=== PATIENT | female | born 1935 | race Caucasian/White ===

== ENCOUNTER 2020-06-01 12:25 | Outpatient (REF) | payer MEDICARE, SELFPAY ==
[2020-06-01 13:56] LABS: MANUAL DIFF FLAG NO
[2020-06-01 14:10] LABS: Basophils Absolute Auto 0.1 X10*3/uL (0.0-0.2); Eosinophils Absolute Auto 0.3 X10*3/uL (0.0-0.4); Eosinophils Percent Auto 4.8 % (0-4); Hematocrit 37.2 % (37-47); Hemoglobin 12.1 g/dl (12.0-16.0); Imm Gran Abs Auto 0.02 X10*3/uL (0.00-0.03); Imm Gran Pct Auto 0.3 % (0.0-0.4); Lymphocytes Absolute Auto 1.5 X10*3/uL (1.2-4.9); Lymphocytes Percent Auto 24.1 % (20-40); Mean Corpuscular HGB Conc 32.5 g/dl (31.0-35.0); Mean Corpuscular Hemoglobin 32.1 pg (27.0-33.0); Mean Corpuscular Volume 98.7 fL (80-98); Mean Platelet Volume 10.1 fL (9.4-12.3); Monocytes Absolute Auto 0.6 X10*3/uL (0.1-1.2); Monocytes Percent Auto 9.1 % (2-11); Neutrophils Absolute Auto 3.8 X10*3/uL (2.0-8.3); Neutrophils Percent Auto 60.7 % (45-73); Platelet Count 327 X10*3/uL (160-400); Red Blood Count 3.77 X10*6/uL (4.20-5.50); Red Cell Distribution Width 13.8 % (11.0-16.0); White Blood Count 6.3 X10*3/uL (4.8-10.8)
[2020-06-01 14:36] LABS: Alanine Aminotransferase 15 U/L (0-31); Alkaline Phosphatase 63 U/L (39-117); Anion Gap 14 (12-20); Aspartate Amino Transferase 21 U/L (5-31); Bilirubin Total 0.3 mg/dL (0.0-1.0); Blood Urea Nitrogen 21 mg/dL (9-16); Calcium 9.4 mg/dL (8.4-10.2); Carbon Dioxide 30 mmol/L (22-29); Chloride 103 mmol/L (96-108); Estimated Glomerular Filt Rate 48; Glucose Random 86 mg/dL (60-115); Sodium 142 mmol/L (135-145); Total Protein 6.4 g/dL (6.5-8.0)
[2020-06-01 14:46] LABS: Free T4 (Free Thyroxine) 1.14 ng/dL (0.71-1.85); Thyroid Stimulating Hormone 1.46 mIU/mL (0.32-4.0)
== END 2020-06-01 12:26 | disposition home or self-care (01) ==
LOC: HO.10HDL 12:25
PROVIDERS: Visit Provider Internal Medicine
DX: I12.9 Hypertensive chronic kidney disease with stage 1 through stage 4 chronic kidney disease, or unspecified chronic kidney disease (principal); E03.9 Hypothyroidism, unspecified
CPT/HCPCS: 36415; 80053; 84439; 84443; 85025

== ENCOUNTER 2020-12-22 14:26 | Outpatient (REF) | payer MEDICARE, SELFPAY ==
[2020-12-22 15:01] LABS: MANUAL DIFF FLAG NO
[2020-12-22 15:06] LABS: Basophils Absolute Auto 0.1 X10*3/uL (0.0-0.2); Basophils Percent Auto 0.8 % (0-2); Eosinophils Absolute Auto 0.2 X10*3/uL (0.0-0.4); Eosinophils Percent Auto 2.7 % (0-4); Hemoglobin 12.1 g/dl (12.0-16.0); Imm Gran Abs Auto 0.03 X10*3/uL (0.00-0.03); Imm Gran Pct Auto 0.5 % (0.0-0.4); Lymphocytes Absolute Auto 1.7 X10*3/uL (1.2-4.9); Lymphocytes Percent Auto 26.4 % (20-40); Mean Corpuscular HGB Conc 32.7 g/dl (31.0-35.0); Mean Corpuscular Volume 97.9 fL (80-98); Mean Platelet Volume 9.9 fL (9.4-12.3); Monocytes Absolute Auto 0.7 X10*3/uL (0.1-1.2); Monocytes Percent Auto 10.4 % (2-11); Neutrophils Absolute Auto 3.7 X10*3/uL (2.0-8.3); Neutrophils Percent Auto 59.2 % (45-73); Platelet Count 293 X10*3/uL (160-400); Red Blood Count 3.78 X10*6/uL (4.20-5.50); Red Cell Distribution Width 13.6 % (11.0-16.0); White Blood Count 6.3 X10*3/uL (4.8-10.8)
[2020-12-22 15:30] LABS: Alanine Aminotransferase 17 U/L (0-31); Alkaline Phosphatase 66 U/L (39-117); Anion Gap 10 (12-20); Aspartate Amino Transferase 20 U/L (5-31); Bilirubin Total 0.4 mg/dL (0.0-1.0); Blood Urea Nitrogen 16 mg/dL (9-16); Calcium 9.6 mg/dL (8.4-10.2); Carbon Dioxide 32 mmol/L (22-29); Chloride 100 mmol/L (96-108); Estimated Glomerular Filt Rate 60; Glucose Random 94 mg/dL (60-115); Potassium 4.2 mmol/L (3.3-5.1); Sodium 138 mmol/L (135-145); Total Protein 6.4 g/dL (6.5-8.0)
[2020-12-22 15:54] LABS: Free T4 (Free Thyroxine) 1.19 ng/dL (0.71-1.85); Thyroid Stimulating Hormone 0.65 uIU/mL (0.32-4.0)
== END 2020-12-22 14:27 | disposition home or self-care (01) ==
LOC: HO.LAB 14:26
PROVIDERS: PCP Internal Medicine; Visit Provider Internal Medicine
DX: I12.9 Hypertensive chronic kidney disease with stage 1 through stage 4 chronic kidney disease, or unspecified chronic kidney disease (principal); N18.9 Chronic kidney disease, unspecified; I48.0 Paroxysmal atrial fibrillation; E03.9 Hypothyroidism, unspecified
CPT/HCPCS: 36415; 80053; 84439; 84443; 85025

== ENCOUNTER 2021-03-09 10:44 | Outpatient (REF) | payer MEDICARE, SELFPAY ==
--- NOTE | ~2021-03-09 | MM_ITS ---
EXAMINATION: MM SCREENING DIGITAL BREAST TOMOSYNTHESIS, BILATERAL CLINICAL INFORMATION: Right breast cancer status post lumpectomy 2014. Left breast cancer status post lumpectomy 1995. Due for yearly. COMPARISON: Mammography: 03/03/2020, outside mammography 01/06/2019, 05/09/2018, 01/24/2016 ([place], [place]). TECHNIQUE: Digital breast tomosynthesis is performed in both the craniocaudal and mediolateral oblique views along with computer-aided detection (CAD). Synthesized 2D images are generated from the tomosynthesis. FINDINGS: There are scattered areas of fibroglandular density (ACR BI-RADS breast composition Category b). Parenchymal pattern is similar to prior studies. There are old post therapy changes with minor bilateral scarring. There is no developing density or interval mass or architectural abnormality. Scattered bilateral vascular and round calcifications are again seen. No significant changes. MM/MM tomosynthesis screening BI IMPRESSION: No mammographic evidence of malignancy. ASSESSMENT: BI-RADS 2: Benign RECOMMENDATION: Routine annual mammography screening. This patient's information was entered into a reminder system with a target due date for their next mammogram.
== END 2021-03-09 10:45 | disposition home or self-care (01) ==
LOC: HO.MAMMO 10:44
PROVIDERS: Visit Provider Internal Medicine
DX: Z12.31 Encounter for screening mammogram for malignant neoplasm of breast (principal)
CPT/HCPCS: 77063; 77067

== ENCOUNTER 2021-04-06 02:22 | Emergency (ER) | payer MEDICARE, SELFPAY ==
--- NOTE | ~2021-04-06 | XR_ITS ---
EXAMINATION: XR HIP, LEFT CLINICAL INFORMATION: Fall. Pain. COMPARISON: None TECHNIQUE: AP views of the pelvis as well as AP and cross-table lateral views of the left hip. FINDINGS: Total left hip arthroplasty. The arthroplasty components demonstrate normal anatomic alignment. No acute hardware or osseous fracture. No perihardware lucency to suggest loosening or infection. Severe right hip joint space narrowing with bony remodeling, subchondral sclerosis, and marginal osteophytes. Overlying surgical clips. XR/XR hip LT w PEL1V IMPRESSION: Total left hip arthroplasty with normal alignment. No acute osseous or hardware fracture. Severe right hip osteoarthritis.
--- NOTE | ~2021-04-06 | XR_ITS ---
EXAMINATION: XR KNEE, LEFT CLINICAL INFORMATION: Fall, pain COMPARISON: None TECHNIQUE: Four views of the left knee. FINDINGS: Status post left total knee arthroplasty. There is a displaced and mildly comminuted oblique fracture of the mid to distal femoral diaphysis. The major distal fragment is displaced medially by nearly one shaft width, and there is anterior angulation of the distal fragment. No definite fracture line extension to the distal femoral prosthesis. Proximal femoral hardware is partially visualized. XR/XR knee LT 2V IMPRESSION: Displaced fracture of the mid to distal femoral diaphysis. No definite fracture line extension to the distal femoral prosthesis.
--- NOTE | ~2021-04-06 | XR_ITS ---
EXAMINATION: XR CHEST CLINICAL INFORMATION: Preoperative evaluation. COMPARISON: None TECHNIQUE: Frontal view of the chest was obtained. FINDINGS: Rightward shift of the mediastinum with right lung volume loss. No airspace consolidation. No pleural effusion or pneumothorax. No acute osseous abnormality. XR/XR chest 1V IMPRESSION: Right lung volume loss with rightward shift the mediastinum. No airspace consolidation, pleural effusion, or pneumothorax.
--- NOTE | ~2021-04-06 | CT_ITS ---
EXAMINATION: CT ABDOMEN AND PELVIS WITHOUT CONTRAST CLINICAL INFORMATION: Fall, pain COMPARISON: None TECHNIQUE: Multidetector volumetric imaging was performed from the superior aspect of the liver through the pubic symphysis. Sagittal and coronal reformatted images were obtained on the technologist's workstation. This CT examination was performed using dose optimization techniques as appropriate, variously including the following: *Automated exposure control *Adjustment of mA and/or kV according to patient size (this includes techniques or standardized protocols for targeted exams where dose is matched to indication/reason for exam; i.e. extremities or head) *Use of iterative reconstruction technique DLP: 802 mGy-cm FINDINGS: LUNG BASES: The visualized lung bases are unremarkable. Elevated left hemidiaphragm. Coronary artery calcifications are present. LIVER, GALLBLADDER, AND BILIARY TREE: The liver is normal in size, shape, and attenuation. No biliary ductal dilatation is present. The gallbladder is unremarkable with no evidence of radiopaque gallstones, gallbladder wall thickening, or obvious pericholecystic inflammatory changes. PANCREAS: Unremarkable. SPLEEN: Unremarkable. ADRENAL GLANDS: Unremarkable. KIDNEYS AND URETERS: The kidneys are normal in size, shape, and attenuation. No hydronephrosis, hydroureter, or calculi seen. BLADDER: Unremarkable. GASTROINTESTINAL TRACT: Colonic diverticulosis is noted. The small and large bowel are otherwise unremarkable without evidence of obstruction or pericolonic inflammatory change. No free fluid or free air is seen. ABDOMINAL WALL: No significant hernia is appreciated. LYMPH NODES: Normal. VASCULAR: There is atherosclerotic calcification along the aorta. PELVIC VISCERA: Unremarkable. OSSEOUS STRUCTURES: No acute fracture is seen. Status post left total hip arthroplasty. Severe degenerative change of the right hip. Degenerative changes are noted in the spine. Grade 2 anterolisthesis of L4 and L5 is favored to be chronic in the setting of facet arthropathy. CT/CT abdomen pelvis wo con IMPRESSION: No acute findings identified in the abdomen/pelvis. Chronic appearing/degenerative changes as noted above.
--- NOTE | ~2021-04-06 | CT_ITS ---
EXAMINATION: NONCONTRAST HEAD CT NONCONTRAST CERVICAL SPINE CT INDICATION INFORMATION: Fall COMPARISON: None TECHNIQUE: Separate noncontrast CT examinations of the head and cervical spine were performed. Coronal head CT images and coronal and sagittal cervical spine images were created at the technologist workstation. DLP: -7 mGy-cm DOSE LOWERING TECHNIQUES: This CT examination was performed using dose optimization techniques as appropriate, variously including the following: - Automated exposure control - Adjustment of mA and/or kV according to patient size (this includes techniques or standardized protocols for targeted exams were dose is matched to indication/reason for exam; i.e. extremities or head) - Use of iterative reconstruction technique FINDINGS: Head: There is no evidence of acute intracranial hemorrhage or territorial infarction. No abnormal mass-effect or midline shift is seen. Ramirez to white matter differentiation is well preserved. No extra-axial fluid collections are identified. The ventricles are normal in size. There is moderate periventricular white matter hypoattenuation consistent with chronic small vessel ischemic disease. Mild volume loss is noted. The osseous structures and soft tissues are normal. There is mucosal thickening of the left maxillary sinus inferiorly. The mastoid air cells are well-aerated. Cervical spine: There is degenerative change at the atlantodens articulation. There are grade 1 anterolistheses of C3 on C4 and C4 on C5 favored to be chronic/degenerative in nature in the setting of severe facet arthropathy. Vertebral body heights are maintained. There is disc space narrowing of the lower cervical spine with associated endplate osteophytes. No evidence of acute fracture. No prevertebral soft tissue swelling. Visualized portions of the lung apices are unremarkable. The thyroid gland is contains numerous calcifications, and the right lobe is enlarged. CT/CT cervical spine wo con IMPRESSION: 1. No acute intracranial findings. 2. No acute findings identified in the cervical spine. Moderate to severe degenerative changes. 3. Enlarged right thyroid lobe with numerous bilateral thyroid calcifications. This may be better assessed with ultrasound.
[2021-04-06 02:39] VITALS: BP 142/72; BP 143/69; PULSE 69; PULSE 70; RESP 16; TEMP 36.6; O2SAT 97; O2SAT 99; BMI 26.5
--- NOTE | 2021-04-06 02:50 | ECG_ITS ---
Test Reason : FALL Blood Pressure : / mmHG Vent. Rate : 073 BPM Atrial Rate : 073 BPM P-R Int : 216 ms QRS Dur : 088 ms QT Int : 426 ms P-R-T Axes : 050 035 044 degrees QTc Int : 469 ms Sinus rhythm with 1st degree A-V block with occasional Premature ventricular complexes Otherwise normal ECG No previous ECGs available Referred By: Betsey Blum Electronically Signed By:ALFREDO WOLF
[2021-04-06 03:44] LABS: Basophils Absolute Auto 0.1 X10*3/uL (0.0-0.2); Basophils Percent Auto 0.8 % (0-2); Eosinophils Absolute Auto 0.4 X10*3/uL (0.0-0.4); Eosinophils Percent Auto 4.6 % (0-4); Hematocrit 34.3 % (37-47); Hemoglobin 11.3 g/dl (12.0-16.0); Imm Gran Abs Auto 0.03 X10*3/uL (0.00-0.03); Imm Gran Pct Auto 0.4 % (0.0-0.4); Lymphocytes Absolute Auto 2.3 X10*3/uL (1.2-4.9); Lymphocytes Percent Auto 28.9 % (20-40); MANUAL DIFF FLAG NO; Mean Corpuscular HGB Conc 32.9 g/dl (31.0-35.0); Mean Corpuscular Hemoglobin 31.7 pg (27.0-33.0); Mean Corpuscular Volume 96.3 fL (80-98); Mean Platelet Volume 9.6 fL (9.4-12.3); Monocytes Absolute Auto 0.8 X10*3/uL (0.1-1.2); Monocytes Percent Auto 9.8 % (2-11); Neutrophils Absolute Auto 4.4 X10*3/uL (2.0-8.3); Neutrophils Percent Auto 55.5 % (45-73); Platelet Count 294 X10*3/uL (160-400); Red Blood Count 3.56 X10*6/uL (4.20-5.50); Red Cell Distribution Width 13.8 % (11.0-16.0); White Blood Count 7.8 X10*3/uL (4.8-10.8)
--- NOTE | 2021-04-06 03:48 | ED.FALL ---
HPI - Fall General Chief Complaint: Fall Stated Complaint: fall Time Seen by Provider: 04/06/21 02:50 Source: patient and family (Daughter) Mode of arrival: ambulatory History of Present Illness HPI Narrative: 85-year-old female who presents via EMS after sustaining a mechanical fall when she got up in the middle the night to get a glass of water. Patient denies any associated prodrome of shortness of breath, palpitations, dizziness prior to the fall. She denies any head strike or loss of consciousness but does have a history of blood thinners and has complaints of left lower extremity/hip pain. Related Data Allergies Allergy/AdvReac Type Severity Reaction Status Date / Time No Known Allergies Allergy Unverified 04/06/21 02:50 Review of Systems Review of Systems: Pertinent positives and negatives as stated in HPI 10 point review of systems is otherwise negative. [facility] Past Medical History Source: nursing notes reviewed Social History Social History Advance Directives: No Advance Directives Information Provided: No Physical Exam Vital Signs: Vital Signs: Last Vital Signs Temp 98 F 04/06/21 02:39 Pulse 69 04/06/21 02:39 Resp 16 04/06/21 02:39 BP 142/72 H 04/06/21 02:39 Pulse Ox 97 04/06/21 02:39 Body Mass Index 26.5 VITAL SIGNS: Reviewed. GENERAL: Well developed, well nourished, in no acute distress. HEAD: Normocephalic/atraumatic, EYES: PERRLA, EOMI EARS: Ext canals without abnormality, TMs non-bulging and non-erythematous NOSE: Nares patent bilateral OROPHARYNX: no oral lesions noted, posterior pharynx clear LUNGS: Normal breath sounds. No adventitious sounds or accessory muscle use. SpO2<97> CARDIOVASCULAR: Regular rate and rhythm without noted murmurs, no JVD or lower extremity edema. ABDOMEN: Soft, non-tender, non-distended with bowel sounds. MUSCULOSKELETAL: No tenderness, deformities, or effusions noted on gross inspection. EXTREMITIES: No cyanosis, clubbing left lower extremity with internal rotation and pain on gentle movement, palpable DP/PT with sensation intact and good capillary refill with warm foot. Left hand: Skin tear, clean, hemostatic SKIN: Inspection of the skin reveals no rashes NEUROLOGIC: Alert and oriented x 4. Strength and sensation to light touch were grossly intact x 4. Course Course Course Narrative: 85-year-old female with history and clinical presentation consistent with mechanical fall and on review of all investigations has left femoral fracture and was provided with fentanyl for pain control with good resolution of pain. Otherwise, skin tear to dorsum of left hand was approximated with Steri-Strips and case was discussed with both Orthopedic Service as well as inpatient hospitalist, the latter of which is accepting admission. Procedures Laceration Laceration 1: Site: hand (Skin tear) Side (If applicable): left Size (cm): 2 Description: irregular Depth: simple, single layer Pre-repair: wound explored and irrigated extensively Skin layer closed with: other (Steri-Strips) MDM - Fall Lab Data Result diagrams: 04/06/21 03:38 04/06/21 03:38 Labs: Lab Results 04/06/21 04/06/21 04/06/21 Range/Units 03:38 03:38 04:05 WBC 7.8 (4.8-10.8) X10*3/uL RBC 3.56 L (4.20-5.50) X10*6/uL Hgb 11.3 L (12.0-16.0) g/dl Hct 34.3 L (37-47) % MCV 96.3 (80-98) fL MCH 31.7 (27.0-33.0) pg MCHC 32.9 (31.0-35.0) g/dl RDW 13.8 (11.0-16.0) % Plt Count 294 (160-400) X10*3/uL MPV 9.6 (9.4-12.3) fL Immature Gran % (Auto) 0.4 (0.0-0.4) % Neut % (Auto) 55.5 (45-73) % Lymph % (Auto) 28.9 (20-40) % Stark % (Auto) 9.8 (2-11) % Eos % (Auto) 4.6 H (0-4) % Baso % (Auto) 0.8 (0-2) % Lymph # (Auto) 2.3 (1.2-4.9) X10*3/uL Stark # (Auto) 0.8 (0.1-1.2) X10*3/uL Eos # (Auto) 0.4 (0.0-0.4) X10*3/uL Baso # (Auto) 0.1 (0.0-0.2) X10*3/uL Abs Immat Gran (auto) 0.03 (0.00-0.03) X10*3/uL Absolute Neuts (auto) 4.4 (2.0-8.3) X10*3/uL Absolute Nucleated RBC 0.000 (0.0-0.012) X10*3/uL Nucleated RBC % (auto) 0.0 (0.0-0.2) /100WBC PT 12.1 (9.9-13.0) SEC INR 1.1 (0.9-1.1) Sodium 139 (135-145) mmol/L Potassium 3.8 (3.3-5.1) mmol/L Chloride 103 (96-108) mmol/L Carbon Dioxide 25 (22-29) mmol/L Anion Gap 15 (12-20) BUN 18 H (9-16) mg/dL Creatinine 0.89 (0.5-1.4) mg/dL Estim Creat Clear Calc 41.8 Estimated GFR > 60 Random Glucose 86 (60-115) mg/dL Calcium 8.8 D (8.4-10.2) mg/dL Total Bilirubin 0.3 (0.0-1.0) mg/dL AST 34 H D (5-31) U/L ALT 16 (0-31) U/L Alkaline Phosphatase 63 (39-117) U/L Total Protein 6.0 L (6.5-8.0) g/dL Albumin 3.6 (3.5-5.0) g/dL Urine Color Urine Appearance Urine pH (5.0-8.0) Ur Specific [place] (1.005-1.025) Urine Protein (NEG-TRACE) MG/DL Urine Glucose (UA) (NEG) MG/DL Urine Ketones (NEG) MG/DL Urine Blood (NEG) Urine Nitrite (NEG) Ur Leukocyte Esterase (NEG) Urine RBC (0) /HPF Urine WBC (0-4) /HPF Ur Squamous Epith Cells /LPF Urine Bacteria /LPF COVID-19 ([facility]) (Negative) COVID-19 Clin Com Blood Type Antibody Screen 04/06/21 04/06/21 04/06/21 Range/Units 05:52 05:52 06:07 WBC (4.8-10.8) X10*3/uL RBC (4.20-5.50) X10*6/uL Hgb (12.0-16.0) g/dl Hct (37-47) % MCV (80-98) fL MCH (27.0-33.0) pg MCHC (31.0-35.0) g/dl RDW (11.0-16.0) % Plt Count (160-400) X10*3/uL MPV (9.4-12.3) fL Immature Gran % (Auto) (0.0-0.4) % Neut % (Auto) (45-73) % Lymph % (Auto) (20-40) % Stark % (Auto) (2-11) % Eos % (Auto) (0-4) % Baso % (Auto) (0-2) % Lymph # (Auto) (1.2-4.9) X10*3/uL Stark # (Auto) (0.1-1.2) X10*3/uL Eos # (Auto) (0.0-0.4) X10*3/uL Baso # (Auto) (0.0-0.2) X10*3/uL Abs Immat Gran (auto) (0.00-0.03) X10*3/uL Absolute Neuts (auto) (2.0-8.3) X10*3/uL Absolute Nucleated RBC (0.0-0.012) X10*3/uL Nucleated RBC % (auto) (0.0-0.2) /100WBC PT (9.9-13.0) SEC INR (0.9-1.1) Sodium (135-145) mmol/L Potassium (3.3-5.1) mmol/L Chloride (96-108) mmol/L Carbon Dioxide (22-29) mmol/L Anion Gap (12-20) BUN (9-16) mg/dL Creatinine (0.5-1.4) mg/dL Estim Creat Clear Calc Estimated GFR Random Glucose (60-115) mg/dL Calcium (8.4-10.2) mg/dL Total Bilirubin (0.0-1.0) mg/dL AST (5-31) U/L ALT (0-31) U/L Alkaline Phosphatase (39-117) U/L Total Protein (6.5-8.0) g/dL Albumin (3.5-5.0) g/dL Urine Color YELLOW Urine Appearance CLEAR Urine pH 6.0 (5.0-8.0) Ur Specific [place] 1.020 (1.005-1.025) Urine Protein NEG (NEG-TRACE) MG/DL Urine Glucose (UA) NEG (NEG) MG/DL Urine Ketones NEG (NEG) MG/DL Urine Blood 2+ H (NEG) Urine Nitrite NEG (NEG) Ur Leukocyte Esterase NEG (NEG) Urine RBC 1-4 (0) /HPF Urine WBC 0-2 (0-4) /HPF Ur Squamous Epith Cells TRACE /LPF Urine Bacteria TRACE /LPF COVID-19 ([facility]) Negative (Negative) COVID-19 Clin Com See Note Blood Type A Negative Antibody Screen NEGATIVE ECG Data Attestation: I personally reviewed and interpreted this ECG as follows: Prior ECG tracings: not available for review Interpretation: Normal sinus rhythm with first-degree AV block and occasional PVCs, HR-73, no STEMI, QRS/QTC are within normal limits in CA-216 Discharge Plan Discharge Clinical Impression: Femur fracture, left Patient Disposition: Admitted As Inpatient
[2021-04-06 04:19] LABS: INTERNATIONAL NORM RATIO 1.1 (0.9-1.1); Prothrombin Time 12.1 SEC (9.9-13.0)
[2021-04-06 04:30] LABS: Alanine Aminotransferase 16 U/L (0-31); Albumin Level 3.6 g/dL (3.5-5.0); Alkaline Phosphatase 63 U/L (39-117); Anion Gap 15 (12-20); Aspartate Amino Transferase 34 U/L (5-31); Bilirubin Total 0.3 mg/dL (0.0-1.0); Blood Urea Nitrogen 18 mg/dL (9-16); Calcium 8.8 mg/dL (8.4-10.2); Carbon Dioxide 25 mmol/L (22-29); Chloride 103 mmol/L (96-108); Creatinine Clr Calc Pharmacy 41.8; Estimated Glomerular Filt Rate > 60; Glucose Random 86 mg/dL (60-115); Potassium 3.8 mmol/L (3.3-5.1); Sodium 139 mmol/L (135-145)
[2021-04-06] MEDS: fentaNYL citrate/PF 100 MCG/2 ML VIAL 12.5 MCG IVPUSH (05:11)
[2021-04-06 06:13] LABS: Glucose Urine UA NEG (NEG); Leukocyte Esterase Urine NEG (NEG); Nitrite Urine NEG (NEG); UACC Culture Trigger NO; Urine Blood 2+ (NEG); Urine Ketones NEG (NEG); Urine Protein NEG (NEG-TRACE)
[2021-04-06 06:21] LABS: COVID-19 Test Negative (Negative); IDNOW Serial# 9DD0AD1C
[2021-04-06 06:24] LABS: Appearance Urine CLEAR; Bacteria Urine TRACE /LPF; Color Urine YELLOW; Squamous Epithelial Cell Urine TRACE /LPF; WBC Urine 0-2 /HPF (0-4)
[2021-04-06] MEDS: ondansetron HCL 4 MG/2 ML VIAL IVPUSH (07:57)
--- NOTE | 2021-04-06 07:59 | PC.NURSE ---
report taken from aislinn jose pt here for leg pain s/p fall, xrays confirm fracture in l leg. on first contact, pt pain control 10/19, taken to xray where pt had episode of vomiting, given zofran iv w good effect. pt return from imaging and changed into hospital attire, ems linens removed, pt tolerated well. +color and sensation in l foot, poor rom. son at bedside, call carrera within reach. wctm.
[2021-04-06] MEDS: oxyCODONE HCl Immed Release 5 MG TABLET PO (08:35)
--- NOTE | 2021-04-06 09:00 | PC.NURSE ---
@[id number] SRINIVASAN HEATH ACCESS LINE CALLED AT [facility] REQUEST JASMYNE ANSWERS AND ASKS TO HAVE ERVIN PUT ON THE LINE ERVIN TAKES OVER CALL RIGHT AWAY
--- NOTE | 2021-04-06 09:58 | PC.NURSE ---
CALL PLACED TO [facility] @ [phone] FOR TRANSFER, DECLINED CALL PLACED TO [facility] [phone]
[2021-04-06 10:04] VITALS: RESP 16
[2021-04-06] MEDS: fentaNYL citrate/PF 100 MCG/2 ML VIAL 25 MCG IVPUSH (10:04)
--- NOTE | 2021-04-06 10:14 | PC.NURSE ---
PER ERVIN CONN PT ACCEPTED AT [facility] BY DR BARRIENTOS
== END 2021-04-06 11:48 | disposition short-term general hospital (02) ==
PROVIDERS: Emergency Provider Student in an Organized Health Care Education/Training Program; PCP Internal Medicine
DX: S72.352A Displaced comminuted fracture of shaft of left femur, initial encounter for closed fracture (principal); S61.412A Laceration without foreign body of left hand, initial encounter; W01.0XXA Fall on same level from slipping, tripping and stumbling without subsequent striking against object, initial encounter; Z20.822 Contact with and (suspected) exposure to COVID-19; Y93.89 Activity, other specified; Y92.013 Bedroom of single-family (private) house as the place of occurrence of the external cause; Y99.9 Unspecified external cause status
CPT/HCPCS: 36415; 70450; 71045; 72125; 73502; 73560; 74176; 80053; 81001; 85025; 85610; 86850; 86900; 86901; 87635; 93005; 96374; 96375; 96376; 99285; J2405; J3010

== ENCOUNTER 2021-11-22 15:42 | Outpatient (REF) | payer MEDICARE, SELFPAY ==
--- NOTE | ~2021-11-22 | XR_ITS ---
EXAMINATION: XR SHOULDER, RIGHT CLINICAL INFORMATION: Right shoulder pain COMPARISON: None TECHNIQUE: AP external rotation, Grashey, scapular Y, and axillary views of the right shoulder. FINDINGS: Severe glenohumeral osteoarthritis with obliteration of the joint space, sclerosis, and some surface remodeling. Inferior osteophytes. No fracture. XR/XR shoulder RT min 2V IMPRESSION: Severe glenohumeral osteoarthritis.
[2021-11-22 16:24] LABS: MANUAL DIFF FLAG NO
[2021-11-22 16:59] LABS: Basophils Percent Auto 0.5 % (0-2); Eosinophils Absolute Auto 0.2 X10*3/uL (0.0-0.4); Eosinophils Percent Auto 3.1 % (0-4); Hematocrit 37.9 % (37.0-47.0); Hemoglobin 12.3 g/dl (12.0-16.0); Imm Gran Abs Auto 0.03 X10*3/uL (0.00-0.03); Imm Gran Pct Auto 0.4 % (0.0-0.4); Lymphocytes Absolute Auto 1.7 X10*3/uL (1.2-4.9); Lymphocytes Percent Auto 23.5 % (20-40); Mean Corpuscular HGB Conc 32.5 g/dl (31.0-35.0); Mean Corpuscular Hemoglobin 31.1 pg (27.0-33.0); Mean Corpuscular Volume 95.7 fL (80.0-98.0); Mean Platelet Volume 9.8 fL (9.4-12.3); Monocytes Absolute Auto 0.8 X10*3/uL (0.1-1.2); Monocytes Percent Auto 10.4 % (2-11); Neutrophils Absolute Auto 4.6 x10*3/uL (2.0-8.3); Neutrophils Percent Auto 62.1 % (45-73); Platelet Count 339 X10*3/uL (160-400); Red Blood Count 3.96 X10*6/uL (4.20-5.50); Red Cell Distribution Width 14.6 % (11.0-16.0); White Blood Count 7.4 X10*3/uL (4.8-10.8)
[2021-11-22 17:33] LABS: Alanine Aminotransferase 15 U/L (0-31); Alkaline Phosphatase 89 U/L (39-117); Anion Gap 13 (12-20); Aspartate Amino Transferase 21 U/L (5-31); Bilirubin Total 0.4 mg/dL (0.0-1.0); Blood Urea Nitrogen 24 mg/dL (9-16); Calcium 9.8 mg/dL (8.4-10.2); Carbon Dioxide 31 mmol/L (22-29); Chloride 99 mmol/L (96-108); Estimated Glomerular Filt Rate 48; Glucose Random 98 mg/dL (60-115); Potassium 4.7 mmol/L (3.3-5.1); Sodium 138 mmol/L (135-145); Total Protein 6.6 g/dL (6.5-8.0)
[2021-11-22 17:55] LABS: Free T4 (Free Thyroxine) 1.16 ng/dL (0.71-1.85); Thyroid Stimulating Hormone 1.07 uIU/mL (0.32-4.0)
== END 2021-11-22 15:43 | disposition home or self-care (01) ==
LOC: HO.XRAY 15:42
PROVIDERS: PCP Internal Medicine; Visit Provider Internal Medicine
DX: M25.511 Pain in right shoulder (principal); I10 Essential (primary) hypertension; E03.9 Hypothyroidism, unspecified
CPT/HCPCS: 36415; 73030; 80053; 84439; 84443; 85025

== ENCOUNTER → 2021-12-08 10:01 | Outpatient (BNVA) | payer MEDICARE, SELFPAY | PROVIDERS: PCP Internal Medicine; Visit Provider Orthopaedic Surgery | DX: M19.011 Primary osteoarthritis, right shoulder (principal) | CPT/HCPCS: 20610; 99202; J1100 ==

== ENCOUNTER → 2022-04-30 09:25 | Outpatient (BNVA) | payer MEDICARE, SELFPAY | PROVIDERS: PCP Internal Medicine; Visit Provider Nurse Practitioner Family | DX: M19.011 Primary osteoarthritis, right shoulder (principal); M17.0 Bilateral primary osteoarthritis of knee; M16.12 Unilateral primary osteoarthritis, left hip; Z87.310 Personal history of (healed) osteoporosis fracture | CPT/HCPCS: 99202 ==

== ENCOUNTER 2022-12-11 14:12 | Outpatient (REF) | payer MEDICARE, SELFPAY ==
[2022-12-11 14:38] LABS: MANUAL DIFF FLAG NO
[2022-12-11 14:53] LABS: Basophils Absolute Auto 0.1 X10*3/uL (0.0-0.2); Basophils Percent Auto 0.8 % (0-2); Eosinophils Absolute Auto 0.2 X10*3/uL (0.0-0.4); Eosinophils Percent Auto 3.5 % (0-4); Hematocrit 38.6 % (37.0-47.0); Hemoglobin 12.7 g/dl (12.0-16.0); Imm Gran Abs Auto 0.03 X10*3/uL (0.00-0.03); Imm Gran Pct Auto 0.5 % (0.0-0.4); Lymphocytes Absolute Auto 1.7 X10*3/uL (1.2-4.9); Lymphocytes Percent Auto 27.1 % (20-40); Mean Corpuscular HGB Conc 32.9 g/dl (31.0-35.0); Mean Corpuscular Hemoglobin 32.6 pg (27.0-33.0); Mean Platelet Volume 10.3 fL (9.4-12.3); Monocytes Absolute Auto 0.7 X10*3/uL (0.1-1.2); Monocytes Percent Auto 10.5 % (2-11); Neutrophils Absolute Auto 3.6 x10*3/uL (2.0-8.3); Neutrophils Percent Auto 57.6 % (45-73); Platelet Count 319 X10*3/uL (160-400); Red Cell Distribution Width 13.7 % (11.0-16.0); White Blood Count 6.3 X10*3/uL (4.8-10.8)
[2022-12-11 15:25] LABS: Alanine Aminotransferase 11 U/L (0-31); Alkaline Phosphatase 64 U/L (39-117); Anion Gap 14 (12-20); Aspartate Amino Transferase 18 U/L (5-31); Bilirubin Total 0.5 mg/dL (0.0-1.0); Blood Urea Nitrogen 20 mg/dL (9-16); Calcium 9.8 mg/dL (8.4-10.2); Carbon Dioxide 31 mmol/L (22-29); Chloride 103 mmol/L (96-108); Cholesterol 244 mg/dL; Estimated Glomerular Filt Rate 53; Glucose Random 107 mg/dL (60-115); Potassium 4.8 mmol/L (3.3-5.1); Sodium 143 mmol/L (135-145); Total Protein 6.2 g/dL (6.5-8.0)
[2022-12-11 15:42] LABS: Free T4 (Free Thyroxine) 1.14 ng/dL (0.71-1.85)
== END 2022-12-11 14:13 | disposition home or self-care (01) ==
LOC: HO.LAB 14:12
PROVIDERS: PCP Internal Medicine; Visit Provider Internal Medicine
DX: E03.9 Hypothyroidism, unspecified (principal); I12.9 Hypertensive chronic kidney disease with stage 1 through stage 4 chronic kidney disease, or unspecified chronic kidney disease; N18.9 Chronic kidney disease, unspecified; E78.00 Pure hypercholesterolemia, unspecified
CPT/HCPCS: 36415; 80053; 82465; 84439; 84443; 85025

== ENCOUNTER 2023-01-04 07:59 | Outpatient (REF) | payer MEDICARE, SELFPAY ==
--- NOTE | ~2023-01-04 | XR_ITS ---
EXAMINATION: XR HIP, RIGHT CLINICAL INFORMATION: Pain COMPARISON: Hip radiographs 04/04/2021 TECHNIQUE: Two views of the right hip. One view of the pelvis. FINDINGS: Status post left total hip arthroplasty with a partially imaged lateral plate and screw fixation with cerclage wires with the hardware fracture involving the visualized surgical screws. Advanced degenerative changes of the right hip with complete loss of joint space and acetabular protrusion no acute fracture or dislocation. Surgical clips overlie the right inguinal soft tissues. Calcified phleboliths in the pelvis. Sacroiliac joint spaces are maintained. XR/XR hip RT w PEL1V IMPRESSION: 1. Status post left total hip arthroplasty with a partially imaged lateral plate and screw fixation with the hardware fracture involving the visualized surgical screws. 2. Advanced degenerative changes of the right hip with complete loss of joint space and acetabular protrusion.
== END 2023-01-04 08:00 | disposition home or self-care (01) ==
LOC: HO.HOSX 07:59
PROVIDERS: Visit Provider Physician Assistant
DX: M25.551 Pain in right hip (principal); M19.011 Primary osteoarthritis, right shoulder; M54.16 Radiculopathy, lumbar region; Z79.899 Other long term (current) drug therapy
CPT/HCPCS: 73502; 99212

== ENCOUNTER 2023-04-25 14:10 | Outpatient (REF) | payer MEDICARE, SELFPAY ==
[2023-04-25 14:30] LABS: MANUAL DIFF FLAG NO
[2023-04-25 14:54] LABS: Basophils Absolute Auto 0.1 X10*3/uL (0.0-0.2); Basophils Percent Auto 0.8 % (0-2); Eosinophils Absolute Auto 0.2 X10*3/uL (0.0-0.4); Eosinophils Percent Auto 3.1 % (0-4); Hematocrit 39.4 % (37.0-47.0); Hemoglobin 12.6 g/dl (12.0-16.0); Imm Gran Abs Auto 0.02 X10*3/uL (0.00-0.03); Imm Gran Pct Auto 0.3 % (0.0-0.4); Lymphocytes Absolute Auto 2.2 X10*3/uL (1.2-4.9); Lymphocytes Percent Auto 31.4 % (20-40); Mean Corpuscular Hemoglobin 31.7 pg (27.0-33.0); Mean Corpuscular Volume 99.2 fL (80.0-98.0); Monocytes Absolute Auto 0.6 X10*3/uL (0.1-1.2); Monocytes Percent Auto 8.5 % (2-11); Neutrophils Absolute Auto 3.9 x10*3/uL (2.0-8.3); Neutrophils Percent Auto 55.9 % (45-73); Platelet Count 331 X10*3/uL (160-400); Red Blood Count 3.97 X10*6/uL (4.20-5.50); Red Cell Distribution Width 13.5 % (11.0-16.0); White Blood Count 7.1 X10*3/uL (4.8-10.8)
[2023-04-25 15:19] LABS: Anion Gap 10 (12-20); Blood Urea Nitrogen 29 mg/dL (9-16); Calcium 9.7 mg/dL (8.4-10.2); Carbon Dioxide 30 mmol/L (22-29); Chloride 106 mmol/L (96-108); Cholesterol 253 mg/dL (<200); Estimated Glomerular Filt Rate 54; Glucose Random 95 mg/dL (60-115); Potassium 4.2 mmol/L (3.3-5.1); Sodium 142 mmol/L (135-145)
[2023-04-25 15:25] LABS: Alanine Aminotransferase 11 U/L (0-31); Albumin Level 4.1 g/dL (3.5-5.0); Alkaline Phosphatase 59 U/L (39-117); Anion Gap 13 (12-20); Aspartate Amino Transferase 19 U/L (5-31); Bilirubin Total 0.3 mg/dL (0.0-1.0); Blood Urea Nitrogen 29 mg/dL (9-16); Calcium 9.6 mg/dL (8.4-10.2); Carbon Dioxide 28 mmol/L (22-29); Chloride 105 mmol/L (96-108); Estimated Glomerular Filt Rate 52; Glucose Random 96 mg/dL (60-115); Potassium 4.2 mmol/L (3.3-5.1); Sodium 142 mmol/L (135-145); Total Protein 6.6 g/dL (6.5-8.0)
[2023-04-25 15:42] LABS: Vitamin D 25-OH Total 72.2 ng/mL (>30)
[2023-04-25 15:45] LABS: Vitamin B12 451 pg/mL (200-900)
== END 2023-04-25 14:11 | disposition home or self-care (01) ==
LOC: HO.LAB 14:10
PROVIDERS: Nurse Practitioner Family; PCP Internal Medicine; Visit Provider Internal Medicine
DX: M25.50 Pain in unspecified joint (principal); I48.91 Unspecified atrial fibrillation; E55.9 Vitamin D deficiency, unspecified; E78.00 Pure hypercholesterolemia, unspecified; I12.9 Hypertensive chronic kidney disease with stage 1 through stage 4 chronic kidney disease, or unspecified chronic kidney disease; N18.9 Chronic kidney disease, unspecified
CPT/HCPCS: 36415; 80048; 80053; 82306; 82465; 82607; 85025

== ENCOUNTER 2023-05-13 08:45 | Outpatient (REF) | payer MEDICARE, SELFPAY ==
[2023-05-13 10:21] LABS: Cholesterol 251 mg/dL (<200); HDL Cholesterol 100 mg/dL (>40); LDL Cholesterol Calculated 138 mg/dL (<100); Triglycerides 65 mg/dL (<150)
== END 2023-05-13 08:46 | disposition home or self-care (01) ==
LOC: HO.LAB 08:45
PROVIDERS: PCP Internal Medicine; Visit Provider Internal Medicine
DX: E78.00 Pure hypercholesterolemia, unspecified (principal)
CPT/HCPCS: 36415; 80061

== ENCOUNTER 2023-05-27 14:49 | Emergency (ER) | payer MEDICARE, SELFPAY ==
--- NOTE | ~2023-05-27 | XR_ITS ---
EXAMINATION: XR HIP, RIGHT CLINICAL INFORMATION: Right hip pain COMPARISON: Pelvis and right hip 01/04/2023 TECHNIQUE: Single view pelvis with 2 additional views of the right hip. FINDINGS: Left total hip prosthesis is present. There is a fracture of the most superior screw in the left femoral metaphysis, unchanged from prior. The left joint prosthesis is otherwise unremarkable. Severe degenerative changes are present involving the right hip joint with circumferential narrowing, sclerosis and some small osteophytes. No fractures or dislocations. Appearances are similar to 01/04/2023. Multiple surgical clips are seen in the right inguinal region. XR/XR hip RT w PEL1V IMPRESSION: 1. Severe degenerative changes right hip. 2. Left total hip prosthesis with fracture of the most superior femoral screw, unchanged from prior.
[2023-05-27 15:15] VITALS: BP 128/76; PULSE 88; O2SAT 96
[2023-05-27 15:17] VITALS: BP 126/67; PULSE 83; RESP 18; TEMP 37.1; O2SAT 96; BMI 25.2
[2023-05-27 15:59] LABS: MANUAL DIFF FLAG NO
[2023-05-27 16:03] LABS: Basophils Absolute Auto 0.1 X10*3/uL (0.0-0.2); Basophils Percent Auto 0.7 % (0-2); Eosinophils Absolute Auto 0.2 X10*3/uL (0.0-0.4); Eosinophils Percent Auto 1.9 % (0-4); Hematocrit 39.2 % (37.0-47.0); Hemoglobin 12.9 g/dl (12.0-16.0); Imm Gran Abs Auto 0.03 X10*3/uL (0.00-0.03); Imm Gran Pct Auto 0.3 % (0.0-0.4); Lymphocytes Absolute Auto 1.3 X10*3/uL (1.2-4.9); Lymphocytes Percent Auto 15.1 % (20-40); Mean Corpuscular HGB Conc 32.9 g/dl (31.0-35.0); Mean Corpuscular Hemoglobin 31.9 pg (27.0-33.0); Mean Corpuscular Volume 96.8 fL (80.0-98.0); Mean Platelet Volume 9.7 fL (9.4-12.3); Monocytes Absolute Auto 0.9 X10*3/uL (0.1-1.2); Monocytes Percent Auto 10.6 % (2-11); Neutrophils Absolute Auto 6.2 x10*3/uL (2.0-8.3); Neutrophils Percent Auto 71.4 % (45-73); Platelet Count 322 X10*3/uL (160-400); Red Blood Count 4.05 X10*6/uL (4.20-5.50); Red Cell Distribution Width 14.2 % (11.0-16.0); White Blood Count 8.7 X10*3/uL (4.8-10.8)
--- NOTE | 2023-05-27 16:20 | ED.GENADULT ---
HPI - General Adult General Chief complaint: Extremity Injury, Lower Stated complaint: R HIP/LOW BACK PAIN PER EMS Source: patient Mode of arrival: EMS History of Present Illness HPI narrative: 88-year-old female with known arthritis who is brought in via EMS with reports of right leg and hip pain after trying to get out of a friend's car. She denies any recent falls, fevers, chills but does report urinary frequency. Patient denies any current shortness of breath or chest pain at this time and states that her pain has gradually improved. Related Data Home Medications Medication Instructions Recorded Confirmed albuterol sulfate 90 mcg/actuation 90 mcg inhalation Q4H PRN Dyspnea 04/06/21 04/06/21 aerosol inhaler apixaban 5 mg tablet (Eliquis) 1 tab PO BID 04/06/21 04/06/21 levothyroxine 75 mcg tablet 75 mcg PO DAILY 04/06/21 04/06/21 lisinopril 20 mg tablet 1 tab PO DAILY 04/06/21 04/06/21 lorazepam 0.5 mg tablet (Ativan) 1 tab PO TID PRN anxiety 04/06/21 04/06/21 verapamil 240 mg tablet,extended 1 tab PO DAILY 04/06/21 04/06/21 release calcitonin (salmon) 200 1 spray intranasal DAILY 12/08/21 unit/actuation nasal spray hydrochlorothiazide 25 mg tablet 25 mg PO DAILY PRN swelling 12/08/21 levothyroxine 50 mcg tablet 50 mcg PO 12/08/21 tramadol 50 mg tablet 100 mg PO BID 12/08/21 triamcinolone acetonide 0.1 % topical BID 12/08/21 topical ointment zolpidem 10 mg tablet 10 mg PO BEDTIME PRN 12/08/21 diclofenac sodium 1.5 % topical pkg topical BID 04/30/22 drops-menthol 10 % roll-on combo pack folic acid-vit B6-vit B12 2.5 1 tab PO DAILY 04/30/22 mg-25 mg-2 mg tablet (WesTab Max) Previous Rx's Medication Instructions Recorded acetaminophen 650 mg 650 mg PO Q12H PRN pain #60 tabs 04/30/22 tablet,extended release (Tylenol Arthritis Pain) celecoxib 200 mg capsule 200 mg PO BID #60 caps 02/25/23 Allergies Allergy/AdvReac Type Severity Reaction Status Date / Time No Known Allergies Allergy Verified 05/27/23 15:14 Review of Systems Review of Systems: Pertinent positives and negatives as stated in [facility] Past Medical History Source: nursing notes reviewed Medical History Blood clot in eye Asthma Hypothyroid HTN (hypertension) Surgical History History of bunionectomy of right great toe History of left hip replacement History of bilateral knee replacement History of surgery Social History Social History Household Members: None Alcohol intake: current Alcohol intake frequency: holidays/special occasions only Alcohol type: wine Patient Tobacco Use Status: Former Tobacco user Quit Date: 1948 Advance Directives: No Advance Directives Information Provided: No Physical Exam ED Vital Signs: Vital Signs - 24 hr 05/27/23 15:17 Temperature 98.7 F Pulse Rate 83 Respiratory Rate 18 Blood Pressure 126/67 Pulse Oximetry 96 Oxygen Delivery Method Room Air BMI result Body Mass Index 25.2 VITAL SIGNS: Reviewed. GENERAL: Well developed, well nourished, in no acute distress. HEAD: Normocephalic/atraumatic EYES: PERRLA, EOMI EARS: Ext canals without abnormality NOSE: Nares patent bilateral OROPHARYNX: no oral lesions noted, posterior pharynx clear NECK: Supple, no adenopathy LUNGS: Normal breath sounds. No adventitious sounds or accessory muscle use. SpO2<96> CARDIOVASCULAR: Regular rate and rhythm without noted murmurs ABDOMEN: Soft, non-tender, non-distended with bowel sounds. PELVIS: Stable, nontender MUSCULOSKELETAL: No tenderness, deformities, or effusions noted on gross inspection. EXTREMITIES: No cyanosis, clubbing or edema. RLE: There is no external or internal rotation of the lower extremity, there is no shortening, neurovascular is intact SKIN: Inspection of the skin reveals no rashes NEUROLOGIC: Alert and oriented x 4. Strength and sensation to light touch were grossly intact x 4. Medications Administered Discontinued Medications Generic Name Dose Route Start Last Admin Trade Name Freq PRN Reason Stop Dose Admin Acetaminophen 975 mg 05/27/23 16:21 05/27/23 16:47 Acetaminophen 325 Mg Tablet PO 05/27/23 16:22 975 mg ONCE ONE Administration Lidocaine 1 patch 05/27/23 16:21 05/27/23 16:47 Lidocaine 4 % Patch Adh..Patch TRANSDERMA 05/27/23 16:22 1 patch ONCE ONE Administration Protocol Medical Decision Making Medical Decision Making [facility] Narrative: 88-year-old female in whom I suspect arthritis but will evaluate with lab work, urinalysis and is an x-ray of the hip. Patient also receiving Tylenol and lidocaine patch. I reviewed the x-ray of the right hip and pelvis and there are no acute fractures or dislocations. I reviewed other investigations and hematologic indices are negative for leukocytosis/left shift and there is no evidence of anemia or thrombocytopenia. Chemistry and sees negative for SAMANTHA or electrolyte/liver enzyme abnormalities. Urinalysis negative for UTI or hematuria. Differential Diagnosis Differential Diagnoses: The differential diagnosis associated with the presentation includes Please see the discussion above Admission/Observation Consideration of admission/observation: Escalation of care including admission/observation considered Please see the discussion above Lab Data [facility] Lab Attestation statement: I reviewed the patient's lab results. Please see the discussion above 05/27/23 15:53 05/27/23 15:53 Labs: Lab Results 05/27/23 05/27/23 Range/Units 15:53 18:31 WBC 8.7 (4.8-10.8) X10*3/uL RBC 4.05 L (4.20-5.50) X10*6/uL Hgb 12.9 (12.0-16.0) g/dl Hct 39.2 (37.0-47.0) % MCV 96.8 (80.0-98.0) fL MCH 31.9 (27.0-33.0) pg MCHC 32.9 (31.0-35.0) g/dl RDW 14.2 (11.0-16.0) % Plt Count 322 (160-400) X10*3/uL MPV 9.7 (9.4-12.3) fL Immature Gran % (Auto) 0.3 (0.0-0.4) % Neut % (Auto) 71.4 (45-73) % Lymph % (Auto) 15.1 L (20-40) % Wilcox % (Auto) 10.6 (2-11) % Eos % (Auto) 1.9 (0-4) % Baso % (Auto) 0.7 (0-2) % Lymph # (Auto) 1.3 (1.2-4.9) X10*3/uL Wilcox # (Auto) 0.9 (0.1-1.2) X10*3/uL Eos # (Auto) 0.2 (0.0-0.4) X10*3/uL Baso # (Auto) 0.1 (0.0-0.2) X10*3/uL Abs Immat Gran (auto) 0.03 (0.00-0.03) X10*3/uL Absolute Neuts (auto) 6.2 (2.0-8.3) x10*3/uL Absolute Nucleated RBC 0.000 (0.0-0.012) X10*3/uL Nucleated RBC % (auto) 0.0 (0.0-0.2) /100WBC Sodium 142 (135-145) mmol/L Potassium 4.7 (3.3-5.1) mmol/L Chloride 104 (96-108) mmol/L Carbon Dioxide 27 (22-29) mmol/L Anion Gap 16 (12-20) BUN 24 H (9-16) mg/dL Creatinine 1.05 (0.5-1.4) mg/dL Estim Creat Clear Calc 32.8 Estimated GFR 50 Random Glucose 101 (60-115) mg/dL Calcium 9.7 (8.4-10.2) mg/dL Total Bilirubin 0.3 (0.0-1.0) mg/dL AST 19 (5-31) U/L ALT 13 (0-31) U/L Alkaline Phosphatase 62 (39-117) U/L Total Protein 7.0 (6.5-8.0) g/dL Albumin 4.1 (3.5-5.0) g/dL Urine Color Yellow Urine Appearance Clear Urine pH 7.0 (5.0-9.0) Ur Specific [place] 1.025 (1.005-1.025) Urine Protein 30 (1+) H (Neg-Trace) mg/dL Urine Glucose (UA) Negative (Negative) mg/dL Urine Ketones 15 (Negative) mg/dL Urine Blood Negative (Negative) Urine Nitrite Negative (Negative) Ur Leukocyte Esterase Trace H (Negative) Radiology Impression Discussion of test interpretation with radiology: I have reviewed the radiologist's reading. Radiologist Impression: Please see the discussion above External Record Review External record reviewed: Outpatient record, Prior outpatient labs and Prior outpatient radiology Chronic Conditions Patient?s care impacted by: Other Atrial fibrillation Discharge Plan Discharge Clinical Impression: Osteoarthritis of right hip, Hip pain, right Patient Disposition: Home, Self-Care Instructions: Osteoarthritis (ED), Arthralgia (ED), Heat Pack Application (ED), Hip Pain (ED) Additional Instructions: 1. Resume all home medications as prescribed. I recommend [id number] lidocaine patches apply to the area of maximal tenderness. 2. Please follow-up with your primary care provider for any further medication changes and a discussion regarding possible physical therapy or referral to Orthopedics. Return to the ER for any worsening symptoms. Prescriptions: No Action celecoxib 200 mg capsule 200 mg PO BID Qty: 60 0RF lisinopril 20 mg tablet 1 tab PO DAILY levothyroxine 75 mcg tablet 75 mcg PO DAILY lorazepam [Ativan] 0.5 mg tablet 1 tab PO TID PRN (Reason: anxiety) verapamil 240 mg tablet extended release 1 tab PO DAILY Eliquis 5 mg tablet 1 tab PO BID albuterol sulfate 90 mcg/actuation HFA aerosol inhaler 90 mcg inhalation Q4H PRN (Reason: Dyspnea) tramadol 50 mg tablet 100 mg PO BID zolpidem 10 mg tablet 10 mg PO BEDTIME PRN calcitonin (salmon) 200 unit/actuation spray,non-aerosol 1 spray intranasal DAILY hydrochlorothiazide 25 mg tablet 25 mg PO DAILY PRN (Reason: swelling) levothyroxine 50 mcg tablet 50 mcg PO triamcinolone acetonide 0.1 % ointment topical BID WesTab Max 2.5-25-2 mg tablet 1 tab PO DAILY diclofenac sodium-menthol 1.5-10 % combo pack topical BID acetaminophen [Tylenol Arthritis Pain] 650 mg tablet extended release 650 mg PO Q12H PRN (Reason: pain) Qty: 60 2RF Referrals: Joseluis Camara MD [Primary Care Provider] -
[2023-05-27 16:25] LABS: Alanine Aminotransferase 13 U/L (0-31); Albumin Level 4.1 g/dL (3.5-5.0); Alkaline Phosphatase 62 U/L (39-117); Anion Gap 16 (12-20); Aspartate Amino Transferase 19 U/L (5-31); Bilirubin Total 0.3 mg/dL (0.0-1.0); Blood Urea Nitrogen 24 mg/dL (9-16); Calcium 9.7 mg/dL (8.4-10.2); Carbon Dioxide 27 mmol/L (22-29); Chloride 104 mmol/L (96-108); Creatinine Clr Calc Pharmacy 32.8; Estimated Glomerular Filt Rate 50; Glucose Random 101 mg/dL (60-115); Potassium 4.7 mmol/L (3.3-5.1); Sodium 142 mmol/L (135-145)
[2023-05-27] MEDS: Lidocaine 4 % Patch ADH..PATCH 1 PATCH TRANSDERMA (16:47)
[2023-05-27] MEDS: Acetaminophen 325 MG TABLET 975 MG PO (16:47)
[2023-05-27 18:40] LABS: Appearance Urine Clear; Color Urine Yellow; Glucose Urine UA Negative (Negative); Leukocyte Esterase Urine Trace (Negative); Nitrite Urine Negative (Negative); Specific Gravity - Urine 1.025 (1.005-1.025); UMIC TRIGGER UACC YES; Urine Blood Negative (Negative); Urine Ketones 15 mg/dL (Negative); Urine Protein 30 (1+) mg/dL (Neg-Trace)
[2023-05-27 18:42] LABS: Bacteria Urine None Seen (None Seen); Hyaline Casts Urine 0-2 /LPF (0-2); RBC Urine 0-2 /HPF (0-2); WBC Urine 0-5 /HPF (0-5)
== END 2023-05-27 19:17 | disposition home or self-care (01) ==
PROVIDERS: Emergency Provider Student in an Organized Health Care Education/Training Program; PCP Internal Medicine
DX: M16.11 Unilateral primary osteoarthritis, right hip (principal); Z79.899 Other long term (current) drug therapy; Z87.891 Personal history of nicotine dependence
CPT/HCPCS: 36415; 73502; 80053; 81001; 85025; 99283; 99284

== ENCOUNTER 2023-06-25 12:56 | Outpatient (AMB) | payer MEDICARE, SELFPAY ==
[2023-06-25 13:01] VITALS: BMI 25.2
--- NOTE | 2023-06-25 13:01 | A.OFFVIS_ITS ---
Intake Vital Signs 06/25/23 13:01 Height 5 ft 2 in Weight 138 lb BMI 25.2 Intake Visit Reasons: OV-Right hip pain interior Intake Note: Caryln is a 86 year old female who presents today for a follow up for her right hip pain. Patient reports still having pain which is worse during the afternoon. She states that she has a burning sensation that stops at her knee. Allergies No Known Allergies Allergy (Verified 06/25/23 13:03) HPI OV-Right hip pain interior HPI Details 88-year-old [facility] follow up on her right hip pain. The patient reports she is still having right hip pain that increases in the afternoon. She also reports a burning sensation that stops at her right knee. [facility] Medical History Blood clot in eye Asthma Hypothyroid HTN (hypertension) Surgical History History of bunionectomy of right great toe History of left hip replacement History of bilateral knee replacement History of surgery Social History Household Members: None Alcohol intake: current Alcohol intake frequency: holidays/special occasions only Alcohol type: wine Patient Tobacco Use Status: Former Tobacco user Quit Date: 1948 Review of Systems Const All systems reviewed & are unremarkable except as noted in HPI and below Physical Exam Vital Signs: BMI result Body Mass Index 25.2 Const General: cooperative, healthy appearing and no acute distress Resp Effort & Inspection: normal respiratory effort and able to speak in complete sentences Cardio Rate: regular rate Peripheral pulses: Peripheral pulses 2+ throughout GI Palpation (GI): Soft to palpation Skin Lesions: no lesions Rashes: no rashes Extrem Other: Right hip: Normal to inspection. No ecchymosis, erythema, or edema. Full hip ROM in all planes. No tenderness to palpation over the greater trochanteric bursa. Limited internal and external rotation. Able to perform straight leg raise. NVI. Pain reported in the groin to anterior thigh. Assessment & Plan Assessment & Plan (1) Osteoarthritis of right hip: Code(s): M16.11 - Unilateral primary osteoarthritis, right hip Plan Ms. Burr is an 88-year-old female who presents in the office today for a follow up on her right hip pain. The patient reports she is still having right hip pain that increases in the afternoon. She also reports a burning sensation that stops at her right knee. The patient will be referred for an intra-articular cortisone injection, which will be performed at the hospital. She is also interested in a right total hip arthroplasty. Bety the nurse navigator was available to speak with the tanya ent while in the office today. She will be scheduled for an appointment with Dr. Maddox to be further evaluated for surgical intervention. Follow up will be with Dr. Maddox, or sooner if needed. Orders: Orders FL arthrogram hip RT Today M16.0 - Bilateral primary osteoarthritis of hip Patient Instructions: Scribed for Claudia Yuen PA-C by Ely Rivera medical staff services manager, on 06/25/2023 at 12:58 pm, EST. Coding Level of Care Code Est Pt Level 4 (97668) Diagnoses Osteoarthritis of right hip M16.11
== END 2023-06-25 13:47 | disposition home or self-care (01) ==
PROVIDERS: PCP Internal Medicine; Visit Provider Physician Assistant
DX: M16.11 Unilateral primary osteoarthritis, right hip (principal)
CPT/HCPCS: 99214

== ENCOUNTER → 2023-06-25 12:56 | Outpatient (BNVA) | payer MEDICARE, SELFPAY | PROVIDERS: PCP Internal Medicine; Visit Provider Physician Assistant | DX: M16.11 Unilateral primary osteoarthritis, right hip (principal) | CPT/HCPCS: 99212 ==

== ENCOUNTER 2023-07-02 13:48 | Outpatient (AMB) | payer MEDICARE, SELFPAY ==
--- NOTE | 2023-07-02 14:05 | MHC.OFFVIS ---
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: No Accompanied by: Self / Same As Patient Allergies No Known Allergies Allergy (Verified 07/02/23 14:06) Medication List - Last Reconciled 07/02/23 by Alan Rueda MD acetaminophen ER (Tylenol Arthritis Pain) 650 mg PO Q12H PRN albuterol sulfate 90 mcg/actuation 90 mcg inhalation Q4H PRN apixaban (Eliquis) 2.5 mg PO BID calcitonin (salmon) 200 unit/actuation 1 spray intranasal DAILY celecoxib 200 mg PO BID diclofenac sodium-menthol 1.5-10 % pkgs topical BID folic acid-vit B6-vit B12 2.5-25-2 mg (WesTab Max) 1 tab PO DAILY hydrochlorothiazide 25 mg PO DAILY PRN levothyroxine 75 mcg PO DAILY levothyroxine 50 mcg PO lisinopril 20 mg PO DAILY lorazepam (Ativan) 0.5 mg PO TID PRN triamcinolone acetonide 0.1% topical BID verapamil ER 240 mg PO DAILY zolpidem 10 mg PO BEDTIME PRN HPI HPI Comments History of Present Illness Details Carlyn has been referred for preoperative evaluation prior to hip surgery. Patient states that she is having hip pain and hence she is thinking of surgery. There is no history of any coronary artery disease or myocardial infarction or cardiomyopathy. She states that she had a apparently atrial fibrillation about 40 years ago but we do not have any documentation of that. Then she was not on any anticoagulation, but few years back she apparently had a visual loss type episode and after that, she has been on anticoagulation. However, she states she has never gone back into atrial fibrillation after the last episode more than 40 years ago. Hence not clear if it is even related or not. Overall, she states she is okay. No clear-cut anginal-type symptoms or anything else cardiac sounding. She has a walker for ambulation. [facility] Medical History (Updated 07/02/23 @ 15:15 by Alan Rueda MD) Blood clot in eye Asthma Hypothyroid HTN (hypertension) Surgical History History of bunionectomy of right great toe History of left hip replacement History of bilateral knee replacement History of surgery Family History (Updated 07/02/23 @ 14:29 by Alan Rueda MD) Father Aortic aneurysm Mother No problems noted. (Updated 07/02/23 @ 14:18 by Era Aguirre) Household Members: None Alcohol intake: current Alcohol intake frequency: 0-2 drinks per day Alcohol type: wine Patient Tobacco Use Status: Former Tobacco user Quit Date: 1948 Review of Systems Const Denies chills, Denies daytime sleepiness, Denies fatigue, Denies fever(s), Denies frequent falls, Denies night sweats, Denies snoring, Denies weakness, Denies weight gain and Denies weight loss Eyes Denies loss of vision ENT Denies dizziness and Denies hearing loss Card Denies chest pain, Denies chest pain with activity, Denies syncope, Denies rapid heart rate, Denies edema, Denies claudication, Denies leg edema, Denies lightheadedness, Denies palpitations, Denies dyspnea, Denies dyspnea on exertion and Denies orthopnea Resp Denies cough, Denies excessive phlegm production, Denies dyspnea, Denies dyspnea on exertion, Denies snoring and Denies wheezing GI Denies abdominal pain, Denies hematochezia, Denies change in bowel habits, Denies change in stool character, Denies heartburn, Denies nausea and Denies vomiting Denies hematuria, Denies urinary frequency and Denies dysuria Musc Denies arthralgias, Denies muscle weakness, Denies numbness and Denies tingling Skin/Breast Denies nail changes and Denies rash Neuro Denies Abnormal speech present, Denies dizziness, Denies syncope, Denies frequent falls, Denies loss of vision, Denies memory loss, Denies numbness, Denies tingling and Denies weakness Psych Denies depression and Denies memory loss Endo Denies fatigue and Denies palpitations Aller/Immun Denies wheezing Physical Exam Vital Signs: Last Vital Signs Pulse 80 07/02/23 14:06 BP 158/96 H 07/02/23 14:06 BMI result Body Mass Index 25.8 Const General: comfortable and no acute distress Orientation/consciousness: patient oriented x3 HEENT Other: Unremarkable Head: Yes normal to inspection Neck Neck: Yes normal visual inspection Chest Chest palpation & inspection: normal inspection of the chest Resp Auscultation: clear to auscultation bilaterally Cardio Palpation: normal PMI Heart sounds: S1 normal heart sound present, S2 normal heart sound present, no gallops, Murmur heart sound present systolic II/ and no rubs GI Palpation (GI): Soft to palpation Back/Spine/Pelvis Other: unremarkable Skin General skin exam: no rashes or lesions noted Neuro General: patient oriented x3 Speech: No Abnormal speech present Extrem General: Yes normal to inspection Psych Mental Status: mental status grossly normal Assessment & Plan Assessment & Plan (1) Preoperative cardiovascular examination: Code(s): Z01.810 - Encounter for preprocedural cardiovascular examination (2) PAF (paroxysmal atrial fibrillation): Code(s): I48.0 - Paroxysmal atrial fibrillation (3) HTN (hypertension): Code(s): I10 - Essential (primary) hypertension Plan Advanced age, remote history of atrial fibrillation but no documentation, limited ambulation, requiring hip surgery. May proceed with echocardiogram and myocardial perfusion imaging study. Discussed with family who came for appointment and they agree. Orders: Orders CA echo transthoracic complete Today I25.10 - Atherosclerotic heart disease of [place] coronary artery without angina pectoris, Z01.810 - Encounter for preprocedural cardiovascular examination CA lexiscan stress w chris Today I20.9 - Angina pectoris, unspecified, Z01.810 - Encounter for preprocedural cardiovascular examination NM cardiolite stress test Today R07.2 - Precordial pain, Z01.810 - Encounter for preprocedural cardiovascular examination Medications: Changed From celecoxib 200 mg PO BID 60 caps 0RF To celecoxib 200 mg PO BID Coding Level of Care Code New Pt Level 4 (74447) Diagnoses Preoperative cardiovascular examination Z01.810 PAF (paroxysmal atrial fibrillation) I48.0 HTN (hypertension) I10
[2023-07-02 14:06] VITALS: BP 158/96; PULSE 80; BMI 25.8
== END 2023-07-02 14:33 | disposition home or self-care (01) ==
PROVIDERS: PCP Internal Medicine; Visit Provider Internal Medicine
DX: Z01.810 Encounter for preprocedural cardiovascular examination (principal); I48.0 Paroxysmal atrial fibrillation; I10 Essential (primary) hypertension
CPT/HCPCS: 99204

== ENCOUNTER → 2023-07-02 13:48 | Outpatient (BNVA) | payer MEDICARE, SELFPAY | PROVIDERS: PCP Internal Medicine; Visit Provider Internal Medicine | DX: Z01.810 Encounter for preprocedural cardiovascular examination (principal); I48.0 Paroxysmal atrial fibrillation; I10 Essential (primary) hypertension | CPT/HCPCS: 99202 ==

== ENCOUNTER 2023-07-11 13:41 | Outpatient (AMB) | payer MEDICARE, SELFPAY ==
--- NOTE | 2023-07-11 14:22 | A.OFFVIS_ITS ---
Intake Intake Visit Reasons: discuss RT ANGELIA Intake Note: This is an 88 year old female who presents to discuss a right ANGELIA. She has a spot on her left thigh that she would like to discuss. Allergies No Known Allergies Allergy (Verified 07/11/23 14:24) Medication List - Last Reconciled 07/11/23 by Jessica Simmons, RN acetaminophen ER (Tylenol Arthritis Pain) 650 mg PO Q12H PRN albuterol sulfate 90 mcg/actuation 90 mcg inhalation Q4H PRN apixaban (Eliquis) 2.5 mg PO BID calcitonin (salmon) 200 unit/actuation 1 spray intranasal DAILY celecoxib 200 mg PO BID diclofenac sodium-menthol 1.5-10 % pkgs topical BID folic acid-vit B6-vit B12 2.5-25-2 mg (WesTab Max) 1 tab PO DAILY hydrochlorothiazide 25 mg PO DAILY PRN levothyroxine 75 mcg PO DAILY levothyroxine 50 mcg PO lisinopril 20 mg PO DAILY lorazepam (Ativan) 0.5 mg PO TID PRN triamcinolone acetonide 0.1% topical BID verapamil ER 240 mg PO DAILY zolpidem 10 mg PO BEDTIME PRN HPI discuss RT ANGELIA HPI Details Lita is an 88 year old woman with severe right hip OA who presents to discuss surgery. She is scheduled for a right ANGELIA on 08/28/23. She complains of pain with daily activity, worse with walking, climbing in/out of a vehicle, or using stairs. She localizes her pain to her groin but reports a burning pain that radiates occ asionally into her knee. She has a hx of a left ANGELIA and bilateral TKAs ~20 years ago. She has Afib and is on Eliquis. Marcie has a skin growth on her right thigh that is concerning to her and they are seeing a in home nanny soon. [facility] Medical History Blood clot in eye Asthma Hypothyroid HTN (hypertension) Surgical History History of bunionectomy of right great toe History of left hip replacement History of bilateral knee replacement History of surgery Family History Father Aortic aneurysm Mother No problems noted. Social History Household Members: None Alcohol intake: current Alcohol intake frequency: 0-2 drinks per day Alcohol type: wine Patient Tobacco Use Status: Former Tobacco user Quit Date: 1948 Review of Systems Const All systems reviewed & are unremarkable except as noted in HPI and below Physical Exam Const General: no acute distress, alert and awake Orientation/consciousness: patient oriented x3 HEENT Head: Yes normocephalic and Yes atraumatic Eyes EOM: EOMs intact bilaterally Resp Effort & Inspection: normal respiratory effort and able to speak in complete sentences Cardio Jugular venous distension: no JVD Skin General skin exam: turgor normal Rashes: no rashes Neuro General: patient oriented x3 Extrem Other: Right Hip: Raised, discolored and concerning growth right thigh Minimal pain with hip ROM Psych Appearance: grossly normal Affect: normal affect Attitude: cooperative Results Reviewed Results Reviewed: I personally reviewed relevant radiographs 1. Severe degenerative changes right hip. 2. Left total hip prosthesis with fracture of the most superior femoral screw, unchanged from prior. Assessment & Plan Assessment & Plan (1) Osteoarthritis of right hip: Code(s): M16.11 - Unilateral primary osteoarthritis, right hip Plan: This is an 88 year old woman with severe right hip OA. She has intermittant pain and is NOT currently a good candidate for surgery. She is seeing a in home nanny and will let us know how she does. If this is not concerning and her hip worsens she can retrun to see me but at this point in time she has occasionally symptomatic hip OA with several risk factors. Coding Level of Care Code Est Pt Level 4 (51064) Diagnoses Osteoarthritis of right hip M16.11
== END 2023-07-11 15:15 | disposition home or self-care (01) ==
PROVIDERS: PCP Internal Medicine; Visit Provider Orthopaedic Surgery
DX: M16.11 Unilateral primary osteoarthritis, right hip (principal)
CPT/HCPCS: 99214

== ENCOUNTER → 2023-07-11 13:41 | Outpatient (BNVA) | payer MEDICARE, SELFPAY | PROVIDERS: PCP Internal Medicine; Visit Provider Orthopaedic Surgery | DX: M16.11 Unilateral primary osteoarthritis, right hip (principal); I48.91 Unspecified atrial fibrillation; Z96.642 Presence of left artificial hip joint; Z96.653 Presence of artificial knee joint, bilateral; Z79.01 Long term (current) use of anticoagulants | CPT/HCPCS: 99212 ==

== ENCOUNTER 2023-12-10 11:29 | Outpatient (REF) | payer MEDICARE, SELFPAY ==
[2023-12-10 13:15] LABS: MANUAL DIFF FLAG NO
[2023-12-10 13:32] LABS: Basophils Absolute Auto 0.1 X10*3/uL (0.0-0.2); Basophils Percent Auto 1.1 % (0-2); Eosinophils Absolute Auto 0.2 X10*3/uL (0.0-0.4); Eosinophils Percent Auto 3.7 % (0-4); Hematocrit 37.5 % (37.0-47.0); Hemoglobin 12.5 g/dl (12.0-16.0); Imm Gran Abs Auto 0.01 X10*3/uL (0.00-0.03); Imm Gran Pct Auto 0.2 % (0.0-0.4); Lymphocytes Absolute Auto 1.7 X10*3/uL (1.2-4.9); Lymphocytes Percent Auto 26.6 % (20-40); Mean Corpuscular HGB Conc 33.3 g/dl (31.0-35.0); Mean Corpuscular Hemoglobin 33.3 pg (27.0-33.0); Mean Platelet Volume 10.4 fL (9.4-12.3); Monocytes Absolute Auto 0.6 X10*3/uL (0.1-1.2); Monocytes Percent Auto 10.2 % (2-11); Neutrophils Absolute Auto 3.6 x10*3/uL (2.0-8.3); Neutrophils Percent Auto 58.2 % (45-73); Platelet Count 282 X10*3/uL (160-400); Red Blood Count 3.75 X10*6/uL (4.20-5.50); Red Cell Distribution Width 14.1 % (11.0-16.0); White Blood Count 6.3 X10*3/uL (4.8-10.8)
[2023-12-10 14:18] LABS: Alanine Aminotransferase 13 U/L (0-31); Albumin Level 4.3 g/dL (3.5-5.0); Alkaline Phosphatase 56 U/L (39-117); Anion Gap 13 (12-20); Aspartate Amino Transferase 19 U/L (5-31); Bilirubin Total 0.5 mg/dL (0.0-1.0); Blood Urea Nitrogen 25 mg/dL (9-16); Calcium 9.6 mg/dL (8.4-10.2); Carbon Dioxide 28 mmol/L (22-29); Chloride 103 mmol/L (96-108); Cholesterol 241 mg/dL (<200); Estimated Glomerular Filt Rate > 60; Glucose Random 94 mg/dL (60-115); Sodium 140 mmol/L (135-145); Total Protein 7.1 g/dL (6.5-8.0)
[2023-12-10 14:20] LABS: Free T4 (Free Thyroxine) 1.13 ng/dL (0.71-1.85); Thyroid Stimulating Hormone 1.81 uIU/mL (0.32-4.0); Vitamin D 25-OH Total 70.2 ng/mL (>30)
== END 2023-12-10 11:30 | disposition home or self-care (01) ==
LOC: HO.10HDL 11:29
PROVIDERS: Visit Provider Internal Medicine
DX: I10 Essential (primary) hypertension (principal); E03.9 Hypothyroidism, unspecified
CPT/HCPCS: 36415; 80053; 82306; 82465; 82746; 84439; 84443; 85025

== ENCOUNTER 2024-03-17 12:09 | Outpatient (REF) | payer MEDICARE, SELFPAY ==
[2024-03-17 13:12] LABS: MANUAL DIFF FLAG NO
[2024-03-17 13:50] LABS: Basophils Absolute Auto 0.1 X10*3/uL (0.0-0.2); Eosinophils Absolute Auto 0.3 X10*3/uL (0.0-0.4); Eosinophils Percent Auto 4.6 % (0-4); Hematocrit 37.6 % (37.0-47.0); Hemoglobin 12.2 g/dl (12.0-16.0); Imm Gran Abs Auto 0.02 X10*3/uL (0.00-0.03); Imm Gran Pct Auto 0.3 % (0.0-0.4); Lymphocytes Absolute Auto 1.3 X10*3/uL (1.2-4.9); Lymphocytes Percent Auto 20.2 % (20-40); Mean Corpuscular HGB Conc 32.4 g/dl (31.0-35.0); Mean Corpuscular Hemoglobin 32.2 pg (27.0-33.0); Mean Corpuscular Volume 99.2 fL (80.0-98.0); Mean Platelet Volume 10.2 fL (9.4-12.3); Monocytes Absolute Auto 0.7 X10*3/uL (0.1-1.2); Monocytes Percent Auto 10.7 % (2-11); Neutrophils Percent Auto 63.2 % (45-73); Platelet Count 291 X10*3/uL (160-400); Red Blood Count 3.79 X10*6/uL (4.20-5.50); Red Cell Distribution Width 13.4 % (11.0-16.0); White Blood Count 6.3 X10*3/uL (4.8-10.8)
[2024-03-17 14:21] LABS: Alanine Aminotransferase 11 U/L (0-31); Alkaline Phosphatase 63 U/L (39-117); Anion Gap 10 (12-20); Aspartate Amino Transferase 16 U/L (5-31); Bilirubin Total 0.5 mg/dL (0.0-1.0); Blood Urea Nitrogen 19 mg/dL (9-16); Calcium 9.7 mg/dL (8.4-10.2); Carbon Dioxide 31 mmol/L (22-29); Chloride 101 mmol/L (96-108); Estimated Glomerular Filt Rate 59; Glucose Random 90 mg/dL (60-115); Potassium 4.3 mmol/L (3.3-5.1); Sodium 138 mmol/L (135-145); Total Protein 6.6 g/dL (6.5-8.0)
[2024-03-17 14:33] LABS: Free T4 (Free Thyroxine) 1.13 ng/dL (0.71-1.85); Thyroid Stimulating Hormone 1.88 uIU/mL (0.32-4.0)
== END 2024-03-17 12:10 | disposition home or self-care (01) ==
LOC: HO.10HDL 12:09
PROVIDERS: Visit Provider Internal Medicine
DX: I48.0 Paroxysmal atrial fibrillation (principal); E03.9 Hypothyroidism, unspecified; I12.9 Hypertensive chronic kidney disease with stage 1 through stage 4 chronic kidney disease, or unspecified chronic kidney disease; N18.9 Chronic kidney disease, unspecified
CPT/HCPCS: 36415; 80053; 84439; 84443; 85025

== ENCOUNTER 2024-04-27 09:47 | Outpatient (REF) | payer MEDICARE, SELFPAY ==
--- NOTE | ~2024-04-27 | XR_ITS ---
EXAMINATION: XR CHEST CLINICAL INFORMATION: Cough and wheezing COMPARISON: Chest radiograph 04/06/2021 CT abdomen and pelvis 04/06/2021 TECHNIQUE: 2 views of the chest were obtained. FINDINGS: There is chronic elevation of the left hemidiaphragm. Heart size within normal limits. There is no evidence of CHF. Tiny pleural effusions may be present. Degenerative changes are seen throughout the spine. A compression fracture is noted involving a lower thoracic vertebral body which is new when compared to the 04/06/2021 CT scan XR/XR chest 2V IMPRESSION: No acute intrathoracic disease. Chronic elevation of left hemidiaphragm. Compression fracture lower thoracic spine new since 2020. Electronically signed by: Vincent Valdivia MD 04/27/2024 10:44 AM EDT
== END 2024-04-27 09:48 | disposition home or self-care (01) ==
LOC: HO.XRAY 09:47
PROVIDERS: PCP Internal Medicine; Visit Provider Internal Medicine
DX: R05.9 Cough, unspecified (principal); R06.2 Wheezing
CPT/HCPCS: 71046

== ENCOUNTER 2024-05-05 23:37 | Emergency (ER) | payer MEDICARE, SELFPAY ==
[2024-05-05 23:51] VITALS: BP 140/92; BP 145/96; PULSE 90; PULSE 96; RESP 14; TEMP 36.2; O2SAT 96; BMI 23.8
--- NOTE | 2024-05-06 00:34 | ED.FALL ---
HPI - Fall General Chief Complaint: Fall Stated Complaint: FALL,NECK/BACK/TAILBONE PAIN,ETOH USE PER EMS Time Seen by Provider: 05/06/24 00:26 Source: patient Mode of arrival: EMS Limitations: no limitations History of Present Illness ED Provider: Dr. Jax Galaviz HPI Narrative: 89-year-old female with a history of hypertension, paroxysmal atrial fibrillation, osteoarthritis of the knees who presents emergency department for evaluation of unwitnessed fall at her assisted living facility. Patient states that she was up all night secondary to her arthritis pain. She states that she had a gin and tonics to drink while she was on the sofa. She then got up and fell. She states she was found on the floor and an ambulance was called and she was brought to emergency department. She states she does remember the fall and does not believe that she hit her head or lost consciousness. She currently has no complaints. She denies headache, neck pain, chest pain, abdominal pain, nausea, vomiting or weakness. Patient states that she usually walks with a walker. Related Data Home Medications ?Medication ?Instructions ?Recorded ?Confirmed albuterol sulfate 90 mcg/actuation 90 mcg inhalation Q4H PRN Dyspnea 04/06/21 07/11/23 aerosol inhaler levothyroxine 75 mcg tablet 75 mcg PO DAILY 04/06/21 07/11/23 calcitonin (salmon) 200 1 spray intranasal DAILY 12/08/21 07/11/23 unit/actuation nasal spray hydrochlorothiazide 25 mg tablet 25 mg PO DAILY PRN swelling 12/08/21 07/11/23 levothyroxine 50 mcg tablet 50 mcg PO 12/08/21 07/11/23 triamcinolone acetonide 0.1 % topical BID 12/08/21 07/11/23 topical ointment zolpidem 10 mg tablet 10 mg PO BEDTIME PRN 12/08/21 07/11/23 diclofenac sodium 1.5 % topical pkg topical BID 04/30/22 07/11/23 drops-menthol 10 % roll-on combo pack folic acid-vit B6-vit B12 2.5 1 tab PO DAILY 04/30/22 07/11/23 mg-25 mg-2 mg tablet (WesTab Max) apixaban 2.5 mg tablet (Eliquis) 2.5 mg PO BID 07/02/23 07/11/23 celecoxib 200 mg capsule 200 mg PO BID 07/02/23 07/11/23 lisinopril 20 mg tablet 20 mg PO DAILY 07/02/23 07/11/23 lorazepam 0.5 mg tablet (Ativan) 0.5 mg PO TID PRN anxiety 07/02/23 07/11/23 verapamil 240 mg tablet,extended 240 mg PO DAILY 07/02/23 07/11/23 release Previous Rx's ?Medication ?Instructions ?Recorded acetaminophen 650 mg 650 mg PO Q12H PRN pain #60 tabs 04/30/22 tablet,extended release (Tylenol Arthritis Pain) Allergies Allergy/AdvReac Type Severity Reaction Status Date / Time No Known Allergies Allergy Verified 05/05/24 23:56 Review of Systems Review of Systems: Yes all other systems are reviewed and are negative [facility] Past Medical History Medical History Blood clot in eye Asthma Hypothyroid HTN (hypertension) Surgical History History of bunionectomy of right great toe History of left hip replacement History of bilateral knee replacement History of surgery Family History Family History Father Aortic aneurysm Mother No problems noted. Social History Social History Household Members: None Alcohol intake: current Alcohol intake frequency: 0-2 drinks per day Alcohol type: wine Patient Tobacco Use Status: Former Tobacco user Smoked in Last 30 Days: No Use of substances other than those prescribed or required for medical reasons: No Do you have a plan to hurt others: No Plan Physical Exam Vital Signs: Vital Signs: Last Vital Signs Temp 97.1 F 05/05/24 23:51 Pulse 96 05/05/24 23:51 Resp 14 05/05/24 23:51 BP 145/96 H 05/05/24 23:51 Pulse Ox 96 05/05/24 23:51 O2 Del Method Room Air 05/05/24 23:51 BMI result Body Mass Index 23.8 Vital signs revealed an elevated blood pressure of 145/96 otherwise unremarkable Exam: General: Awake, alert in no distress, answers questions appropriately Head: Normocephalic, atraumatic EENT: PERRL, Lids normal, sclera normal, conjunctiva normal, nose normal , ears normal, throat without erythema or exudates Neck: Supple, no adenopathy Lung: breath sounds symmetric, no wheezing, rales or rhonchi Chest: symmetric movement, nontender Heart: regular rate and rhythm, normal S1, S2 no murmurs or rubs Abdomen: soft, non-tender, nondistended, normal bowel sounds Back: no vertebral tenderness, no CVAT Extremities: no deformities, moves all extremities symmetrically Neuro: Awake, alert, oriented, normal speech, cranial nerves intact, moves all extremities symmetrically Psych: Pleasant, cooperative Medical Decision Making Medical Decision Making MDM Narrative: 89-year-old female with a history of hypertension, paroxysmal atrial fibrillation, osteoarthritis of the knees who presents emergency department for evaluation of unwitnessed fall at her assisted living facility. Patient currently has no complaints. Vital signs were normal physical examination was unremarkable. Patient was able to walk in the emergency department using the walker without any difficulty and without assistance. Differential diagnosis: ?Includes but is not limited to closed head injury, skull fracture, intracranial bleed, electrolyte abnormalities, alcohol intoxication Course: 00:44 The patient had an unwitnessed fall in her assisted living facility. The patient has no complaints in her exam was unremarkable. The patient was able to walk using a walker without any assistance. At this time I do not think the patient needs any further testing and I did discuss this with the patient and she agrees. Patient does feel safe going home and states she does have family that can pick her up. Admission/Observation Consideration of admission/observation: Escalation of care including admission/observation considered (no) Chronic Conditions Patient?s care impacted by: Hypertension and Other (Paroxysmal atrial fibrillation) Discharge Plan Discharge Clinical Impression: Fall Patient Disposition: Home, Self-Care Additional Instructions: At this time, I do not think that you had any significant injury from your fall. You were able to walk here in the emergency department using her walker without any difficulty. Continue taking medications as prescribed by your providers. Follow-up with your doctor in 2 days. Please return to the emergency department if your symptoms get worse or if you develop any symptoms that are concerning to you. Prescriptions: No Action levothyroxine 75 mcg tablet 75 mcg PO DAILY albuterol sulfate 90 mcg/actuation HFA aerosol inhaler 90 mcg inhalation Q4H PRN (Reason: Dyspnea) lisinopril 20 mg tablet 20 mg PO DAILY lorazepam [Ativan] 0.5 mg tablet 0.5 mg PO TID PRN (Reason: anxiety) verapamil 240 mg tablet extended release 240 mg PO DAILY zolpidem 10 mg tablet 10 mg PO BEDTIME PRN calcitonin (salmon) 200 unit/actuation spray,non-aerosol 1 spray intranasal DAILY hydrochlorothiazide 25 mg tablet 25 mg PO DAILY PRN (Reason: swelling) levothyroxine 50 mcg tablet 50 mcg PO triamcinolone acetonide 0.1 % ointment topical BID WesTab Max 2.5-25-2 mg tablet 1 tab PO DAILY diclofenac sodium-menthol 1.5-10 % combo pack topical BID acetaminophen [Tylenol Arthritis Pain] 650 mg tablet extended release 650 mg PO Q12H PRN (Reason: pain) Qty: 60 2RF Eliquis 2.5 mg tablet 2.5 mg PO BID celecoxib 200 mg capsule 200 mg PO BID Print Language: Lithuanian
--- NOTE | 2024-05-06 00:41 | MHC.EDTECH ---
Provider Guillaume said to disregard labs and ekg ,Ambulation trial done ,Patient walk well ,Provider and rn aware .
[2024-05-06 01:13] VITALS: BP 155/100; PULSE 85; RESP 16; TEMP 37; O2SAT 98
--- NOTE | 2024-05-06 01:28 | PC.NURSE ---
pt is alert and oriented, skin appropriate for eternity, respirations even and unlabored. states that pt is ready for d/c back to [facility]- this rn called [facility] to figure out how to get the pt back home safely, the receptions answered and states that they have the pt's keys to her apartment , they also called her son Eduin to see if he can come and filler picker her up but no answer. pt's gave me and another number to her other son Renan [phone] no answer, message was left.
--- NOTE | 2024-05-06 01:42 | MHC.EDTECH ---
Patient was assisted to walk to bathroom ,void and was assisted back to bed .
--- NOTE | 2024-05-06 03:45 | PC.NURSE ---
called Eduin the pt's son and he is able to pick the pt up around [phone]
[2024-05-06 04:00] VITALS: BP 170/67; PULSE 64; RESP 16; TEMP 36.2; O2SAT 97
--- NOTE | 2024-05-06 04:01 | MHC.EDTECH ---
Patient vitals taken and pt was assisted to walk to bathroom ,void and back to bed .
[2024-05-06 04:17] VITALS: BP 170/67; PULSE 64; RESP 16; TEMP 36.2; O2SAT 97
== END 2024-05-06 04:18 | disposition home or self-care (01) ==
PROVIDERS: Emergency Provider Emergency Medicine Emergency Medical Services; PCP Internal Medicine
DX: Z03.89 Encounter for observation for other suspected diseases and conditions ruled out (principal); Z91.81 History of falling; I10 Essential (primary) hypertension; I48.0 Paroxysmal atrial fibrillation
CPT/HCPCS: 99282; 99284

== ENCOUNTER 2024-05-06 11:16 | Outpatient (REF) | payer MEDICARE, SELFPAY | END 2024-05-06 11:17 | disposition home or self-care (01) | LOC: HO.LAB 11:16 | PROVIDERS: PCP Internal Medicine; Visit Provider Internal Medicine | DX: Z13.89 Encounter for screening for other disorder (principal) ==

== ENCOUNTER 2024-12-05 00:49 | Emergency (ER) | payer MEDICARE, SELFPAY ==
--- NOTE | ~2024-12-05 | XR_ITS ---
CLINICAL HISTORY: ? Compression fracture 3 views lumbar spine Comparison: None Findings: There is a moderate T11 compression fracture of uncertain age. There is no evidence of a lumbar spine fracture. There is grade 2 anterolisthesis of L4 on L5 which appears to be due to severe facet osteoarthritis. There is moderate to severe degenerative disc disease at L1-2 and L2-3. There is moderate degenerative disc disease at L4-5. There is multilevel facet osteoarthritis. There is aortoiliac calcification. Impression: 1. Moderate T11 compression fracture of uncertain age. 2. Lumbar spondylosis. This document has been electronically signed by: Augustin Alarcon MD on 12/05/2024 03:47:23
[2024-12-05 01:05] VITALS: BP 132/84; BP 146/94; PULSE 120; PULSE 98; RESP 18; TEMP 37; O2SAT 95; O2SAT 99; BMI 25.0
--- NOTE | 2024-12-05 02:39 | ED_ITS ---
HPI - General Adult General Chief complaint: Back Pain/Injury Stated complaint: LOWER BACK PAIN/RT LEG PAIN/ ETOH ? Time Seen by Provider: 12/05/24 02:30 Source: patient and EMS Mode of arrival: EMS Limitations: no limitations History of Present Illness ED Provider: HPI narrative: Patient's 89 years old from alf with history of AFib osteoarthritis hypertension on Eliquis was trying to get up from the bed could not get up because of feeling stiff with low back pain no radiation of the pain after arrival patient is feeling much better able to move her lower extremity Related Data Home Medications ?Medication ?Instructions ?Recorded ?Confirmed albuterol sulfate 90 mcg/actuation 90 mcg inhalation Q4H PRN Dyspnea 04/06/21 07/11/23 aerosol inhaler levothyroxine 75 mcg tablet 75 mcg PO DAILY 04/06/21 07/11/23 calcitonin (salmon) 200 1 spray intranasal DAILY 12/08/21 07/11/23 unit/actuation nasal spray hydrochlorothiazide 25 mg tablet 25 mg PO DAILY PRN swelling 12/08/21 07/11/23 levothyroxine 50 mcg tablet 50 mcg PO 12/08/21 07/11/23 triamcinolone acetonide 0.1 % topical BID 12/08/21 07/11/23 topical ointment zolpidem 10 mg tablet 10 mg PO BEDTIME PRN 12/08/21 07/11/23 folic acid-vit B6-vit B12 2.5 1 tab PO DAILY 04/30/22 07/11/23 mg-25 mg-2 mg tablet (WesTab Max) apixaban 2.5 mg tablet (Eliquis) 2.5 mg PO BID 07/02/23 07/11/23 celecoxib 200 mg capsule 200 mg PO BID 07/02/23 07/11/23 lisinopril 20 mg tablet 20 mg PO DAILY 07/02/23 07/11/23 lorazepam 0.5 mg tablet (Ativan) 0.5 mg PO TID PRN anxiety 07/02/23 07/11/23 verapamil 240 mg tablet,extended 240 mg PO DAILY 07/02/23 07/11/23 release Previous Rx's ?Medication ?Instructions ?Recorded acetaminophen 650 mg 650 mg PO Q12H PRN pain #60 tabs 04/30/22 tablet,extended release (Tylenol Arthritis Pain) tramadol 50 mg tablet 50 mg PO BID PRN pain 28 days #56 11/13/24 tabs diclofenac sodium 3 % topical gel 0.1 g topical TID #100 grams 12/04/24 Allergies Allergy/AdvReac Type Severity Reaction Status Date / Time No Known Allergies Allergy Verified 12/05/24 01:06 Review of Systems 2 Review of Systems: Yes all other systems are reviewed and are negative [facility] Past Medical History Medical History Blood clot in eye Asthma Hypothyroid HTN (hypertension) Surgical History History of bunionectomy of right great toe History of left hip replacement History of bilateral knee replacement History of surgery Family History Family History Father Aortic aneurysm Mother No problems noted. Social History Social History Household Members: None Alcohol intake: current Alcohol intake frequency: 0-2 drinks per day Alcohol type: wine Patient Tobacco Use Status: Former Tobacco user Physical Exam ED Vital Signs: Vital Signs - 24 hr 12/05/24 01:05 12/05/24 04:32 12/05/24 05:34 Temperature 98.6 F 98.0 F 98.0 F Pulse Rate 98 101 H 101 H Respiratory Rate 18 16 16 Blood Pressure 146/94 H 185/97 H 185/97 H Pulse Oximetry 95 97 97 Oxygen Delivery Method Room Air Room Air Room Air BMI result Body Mass Index 25.0 Appearance: Alert. Oriented X3. No acute distress. Eyes: PERRLA, No Nystagmus ENT: Pharynx normal. Oral Mucosa moist Neck: Normal inspection. Neck supple. CVS: Normal heart rate and rhythm. Pulses normal. Respiratory: No respiratory distress. Equal air entry bilateral, no wheezing/rales/rhonchi Abdomen: Soft and nontender. Bowel sounds are present, no mass palpable, no CVA tenderness Skin: Skin warm and dry. Normal skin color. Normal skin turgor. back: Diffuse tenderness T11-L1 no deformity Extremities: No lower extremity edema. No calf tenderness no knee swelling good range of movement Neuro: Oriented X 3. No motor deficit. No sensory deficit.No cerebellar signs , cranial nerves II-XII intact Medications Administered Discontinued Medications Generic Name Dose Route Start Last Admin Trade Name Juana PRN Reason Stop Dose Admin Tramadol HCl 50 mg 12/05/24 02:40 12/05/24 02:51 Tramadol Hcl 50 Mg Tablet PO 12/05/24 02:41 50 mg ONCE ONE Administration Medical Decision Making Medical Decision Making [facility] Narrative: Patient with increased pain and stiffness when trying to get up x-ray showed chronic T11 compression fracture without any impingement no neuro findings patient is feeling much better able to ambulate discharge patient back to alf Lab Data [facility] Lab Attestation statement: I reviewed the patient's lab results. 12/05/24 02:48 12/05/24 02:48 Labs: Lab Results 12/05/24 12/05/24 Range/Units 02:48 02:50 WBC 8.2 (4.8-10.8) X10*3/uL RBC 3.94 L (4.20-5.50) X10*6/uL Hgb 12.9 (12.0-16.0) g/dl Hct 37.6 (37.0-47.0) % MCV 95.4 (80.0-98.0) fL MCH 32.7 (27.0-33.0) pg MCHC 34.3 (31.0-35.0) g/dl RDW 14.3 (11.0-16.0) % Plt Count 267 (160-400) X10*3/uL MPV 9.6 (9.4-12.3) fL Immature Gran % (Auto) 0.4 (0.0-0.4) % Neut % (Auto) 75.1 H (45-73) % Lymph % (Auto) 15.3 L (20-40) % [place] % (Auto) 7.4 (2-11) % Eos % (Auto) 1.2 (0-4) % Baso % (Auto) 0.6 (0-2) % Lymph # (Auto) 1.3 (1.2-4.9) X10*3/uL [place] # (Auto) 0.6 (0.1-1.2) X10*3/uL Eos # (Auto) 0.1 (0.0-0.4) X10*3/uL Baso # (Auto) 0.1 (0.0-0.2) X10*3/uL Abs Immat Gran (auto) 0.03 (0.00-0.03) X10*3/uL Absolute Neuts (auto) 6.2 (2.0-8.3) x10*3/uL Absolute Nucleated RBC 0.000 (0.0-0.012) X10*3/uL Nucleated RBC % (auto) 0.0 (0.0-0.2) /100WBC Sodium 143 (135-145) mmol/L Potassium 4.0 (3.3-5.1) mmol/L Chloride 107 (96-108) mmol/L Carbon Dioxide 25 (22-29) mmol/L Anion Gap 15 (12-20) BUN 22 H (9-16) mg/dL Creatinine 0.92 (0.5-1.4) mg/dL Estim Creat Clear Calc 38.0 Estimated GFR 58 Random Glucose 86 (60-115) mg/dL Calcium 9.3 (8.4-10.2) mg/dL Total Bilirubin 0.3 (0.0-1.0) mg/dL AST 21 (5-31) U/L ALT 11 (0-31) U/L Alkaline Phosphatase 67 (39-117) U/L Total Protein 6.5 (6.5-8.0) g/dL Albumin 3.9 (3.5-5.0) g/dL Urine Color Yellow Urine Appearance Clear Urine pH 6.5 (5.0-9.0) Ur Specific [place] 1.010 (1.005-1.025) Urine Protein Trace (Neg-Trace) mg/dL Urine Glucose (UA) Negative (Negative) mg/dL Urine Ketones Negative (Negative) mg/dL Urine Blood Negative (Negative) Urine Nitrite Negative (Negative) Ur Leukocyte Esterase Small (1+) H (Negative) Urine RBC 0-2 (0-2) /HPF Urine WBC 11-20 H (0-5) /HPF Ur Squamous Epith Cells 3-5 (0-2) /HPF Urine Bacteria None Seen (None Seen) Hyaline Casts 0-2 (0-2) /LPF Independent Interpretation I performed an independent interpretation of an: Plain X-Ray Radiology Impression Discussion of test interpretation with radiology: I have reviewed the radiologist's reading. Discharge Plan Discharge Clinical Impression: Compression fracture of T11 vertebra Patient Disposition: Home, Self-Care Instructions: Vertebral Compression Fracture (ED) Additional Instructions: Follow up with your PCP for further management Do not take extra doses of your pain medication,take them as prescribed Prescriptions: No Action tramadol 50 mg tablet 50 mg PO BID PRN (Reason: pain) 28 Days Qty: 56 0RF Rx Instructions: partial fill upon patient request diclofenac sodium 3 % gel 0.1 g topical TID Qty: 100 3RF levothyroxine 75 mcg tablet 75 mcg PO DAILY albuterol sulfate 90 mcg/actuation HFA aerosol inhaler 90 mcg inhalation Q4H PRN (Reason: Dyspnea) lisinopril 20 mg tablet 20 mg PO DAILY lorazepam [Ativan] 0.5 mg tablet 0.5 mg PO TID PRN (Reason: anxiety) verapamil 240 mg tablet extended release 240 mg PO DAILY zolpidem 10 mg tablet 10 mg PO BEDTIME PRN calcitonin (salmon) 200 unit/actuation spray,non-aerosol 1 spray intranasal DAILY hydrochlorothiazide 25 mg tablet 25 mg PO DAILY PRN (Reason: swelling) levothyroxine 50 mcg tablet 50 mcg PO triamcinolone acetonide 0.1 % ointment topical BID WesTab Max 2.5-25-2 mg tablet 1 tab PO DAILY acetaminophen [Tylenol Arthritis Pain] 650 mg tablet extended release 650 mg PO Q12H PRN (Reason: pain) Qty: 60 2RF Eliquis 2.5 mg tablet 2.5 mg PO BID celecoxib 200 mg capsule 200 mg PO BID Interventions: ED Discharge Assessment Last Done: 12/05/24 05:34 Discharge Date/Time: 12/05/24 05:35 Print Language: Persian
[2024-12-05] MEDS: traMADoL HCL 50 MG TABLET PO (02:51)
[2024-12-05 02:56] LABS: MANUAL DIFF FLAG NO
[2024-12-05 02:57] LABS: Basophils Absolute Auto 0.1 X10*3/uL (0.0-0.2); Basophils Percent Auto 0.6 % (0-2); Eosinophils Absolute Auto 0.1 X10*3/uL (0.0-0.4); Eosinophils Percent Auto 1.2 % (0-4); Hematocrit 37.6 % (37.0-47.0); Hemoglobin 12.9 g/dl (12.0-16.0); Imm Gran Abs Auto 0.03 X10*3/uL (0.00-0.03); Imm Gran Pct Auto 0.4 % (0.0-0.4); Lymphocytes Absolute Auto 1.3 X10*3/uL (1.2-4.9); Lymphocytes Percent Auto 15.3 % (20-40); Mean Corpuscular HGB Conc 34.3 g/dl (31.0-35.0); Mean Corpuscular Hemoglobin 32.7 pg (27.0-33.0); Mean Corpuscular Volume 95.4 fL (80.0-98.0); Mean Platelet Volume 9.6 fL (9.4-12.3); Monocytes Absolute Auto 0.6 X10*3/uL (0.1-1.2); Monocytes Percent Auto 7.4 % (2-11); Neutrophils Absolute Auto 6.2 x10*3/uL (2.0-8.3); Neutrophils Percent Auto 75.1 % (45-73); Platelet Count 267 X10*3/uL (160-400); Red Blood Count 3.94 X10*6/uL (4.20-5.50); Red Cell Distribution Width 14.3 % (11.0-16.0); White Blood Count 8.2 X10*3/uL (4.8-10.8)
[2024-12-05 03:21] LABS: Alanine Aminotransferase 11 U/L (0-31); Albumin Level 3.9 g/dL (3.5-5.0); Alkaline Phosphatase 67 U/L (39-117); Anion Gap 15 (12-20); Aspartate Amino Transferase 21 U/L (5-31); Bilirubin Total 0.3 mg/dL (0.0-1.0); Blood Urea Nitrogen 22 mg/dL (9-16); Calcium 9.3 mg/dL (8.4-10.2); Carbon Dioxide 25 mmol/L (22-29); Chloride 107 mmol/L (96-108); Estimated Glomerular Filt Rate 58; Glucose Random 86 mg/dL (60-115); Sodium 143 mmol/L (135-145); Total Protein 6.5 g/dL (6.5-8.0)
[2024-12-05 03:42] LABS: Appearance Urine Clear; Color Urine Yellow; Glucose Urine UA Negative (Negative); Leukocyte Esterase Urine Small (1+) (Negative); Nitrite Urine Negative (Negative); PH 6.5 (5.0-9.0); UMIC TRIGGER UACC YES; Urine Blood Negative (Negative); Urine Ketones Negative (Negative); Urine Protein Trace mg/dL (Neg-Trace)
[2024-12-05 03:47] LABS: Bacteria Urine None Seen (None Seen); Hyaline Casts Urine 0-2 /LPF (0-2); RBC Urine 0-2 /HPF (0-2); UACC Culture Trigger YES
[2024-12-05 04:32] VITALS: BP 185/97; PULSE 101; RESP 16; TEMP 36.7; O2SAT 97
--- NOTE | 2024-12-05 04:33 | PC.NURSE ---
Pt ambulates at her baseline with a walker.
[2024-12-05 05:34] VITALS: BP 185/97; PULSE 101; RESP 16; TEMP 36.7; O2SAT 97
== END 2024-12-05 05:35 | disposition home or self-care (01) ==
PROVIDERS: Emergency Provider Internal Medicine; PCP Internal Medicine
DX: M48.54XA Collapsed vertebra, not elsewhere classified, thoracic region, initial encounter for fracture (principal); M79.604 Pain in right leg; I48.91 Unspecified atrial fibrillation; Z79.01 Long term (current) use of anticoagulants; Z79.899 Other long term (current) drug therapy
CPT/HCPCS: 36415; 72100; 80053; 81001; 85025; 87086; 99283; 99284

== ENCOUNTER → 2024-12-05 02:40 | Outpatient (BNV) | payer MEDICARE, SELFPAY | PROVIDERS: Emergency Provider Internal Medicine; PCP Internal Medicine; Visit Provider Radiology Diagnostic Radiology | DX: S22.089A Unspecified fracture of T11-T12 vertebra, initial encounter for closed fracture (principal); M47.816 Spondylosis without myelopathy or radiculopathy, lumbar region | CPT/HCPCS: 72100 ==

== ENCOUNTER 2024-12-16 15:55 | Outpatient (AMB) | payer MEDICARE, SELFPAY ==
--- NOTE | 2024-12-16 16:02 | MHC.PC.OV ---
Vital Signs 12/16/24 16:20 Height 5 ft 2 in Weight 60.328 kg BMI 24.3 BP 114/76 Respiration 16 Pulse 77 Pulse Source Pulse Oximeter Temp 97.7 F Pulse Oximetry (%) 97 Oxygen Delivery Method Room Air Intake Visit Reasons: Route / Breast Lump Tomography Technologist Required: No Accompanied by: Daughter Allergies No Known Allergies Allergy (Verified 12/16/24 16:08) Medication List - Last Reconciled 12/18/24 by SENIA Ley acetaminophen ER (Tylenol Arthritis Pain) 650 mg PO Q12H PRN albuterol sulfate 90 mcg/actuation 90 mcg inhalation Q4H PRN apixaban (Eliquis) 2.5 mg PO BID diclofenac sodium 3% 0.1 grams topical TID hydrochlorothiazide 25 mg PO DAILY PRN levothyroxine 50 mcg PO levothyroxine 75 mcg PO DAILY lisinopril 20 mg PO DAILY tramadol 50 mg PO BID PRN trazodone 25 - 50 mg (0.5 - 1 x 50 mg) PO BEDTIME PRN triamcinolone acetonide 0.1% topical BID verapamil ER 240 mg PO DAILY Tobacco use date assessed: 12/16/24 Fall risk assessment: 2 + Falls in past year Last assessed Fall Risk: 12/16/24 Dental Screening Dental Screen Date: 12/16/24 Did you have a dental visit in the last 12 months?: Yes Did you have a dental problem in the last 6 months where you did not have access to dental care?: No Was dental information given to patient?: Patient has dentist HPI HPI Comments History of Present Illness Details 89-year-old female with history of hypertension, hypothyroidism, mild intermittent asthma, paroxysmal atrial fibrillation, and osteoarthritis presents to the office today for routine follow-up as well as evaluation of a lump of the left breast. She is accompanied by her daughter Anamika. She denies any pain of the breast. No history of cancer. Noticed several days ago. She has questions about the Ambien that she was previously taken which was discontinued. She states she is having a lot of difficulty falling asleep still and staying asleep. She does continue taking tramadol for her osteoarthritis with good effect. She has been taking levothyroxine alternating dose between 50 mcg and 75 mcg per day. She is no longer following with Cardiology but atrial fibrillation remained stable without any symptoms. Continues on Eliquis 2.5 mg twice daily and denies any easy bruisability or bleeding. Otherwise has no complaints. [facility] Medical History (Updated 12/18/24 @ 11:33 by SENIA Ley) Osteoarthritis of right hip Osteoarthritis of right glenohumeral joint Osteoarthritis of knees, bilateral Osteoarthritis of left hip History of healed fragility fracture Blood clot in eye Asthma Hypothyroid HTN (hypertension) Surgical History History of bunionectomy of right great toe History of left hip replacement History of bilateral knee replacement History of surgery Family History Father Aortic aneurysm Mother No problems noted. 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 RX glasses) Questionnaire PHQ-9 Over the last 2 weeks, how often have you been bothered by any of the following problems? 1. Little interest or pleasure in doing things: nearly every day 2. Feeling down, depressed, or hopeless: nearly every day 3. Trouble falling or staying asleep, or sleeping too much: nearly every day 4. Feeling tired or having little energy: nearly every day 5. Poor appetite or overeating: nearly every day 6. Feeling bad about yourself - or that you are a failure or have let yourself or your family down: nearly every day 7. Trouble concentrating on things, such as reading the newspaper or watching television: nearly every day 8. Moving or speaking so slowly that other people could have noticed. Or the opposite - being so fidgety or restless that you have been moving around a lot more than usual: nearly every day 9. Thoughts that you would be better off or of hurting yourself in some way: not at all Total score: 24 Source: Developed by Drs. Denzel Jarquin, Lena Dawkins, Segundo Boyd and colleagues, with an educational laura from [employer]. Thrive Questionnaire Date Thrive assessed: 12/16/24 I am a: Patient What is your living situation today?: I have a steady place to live Within the past 12 months, did the food you bought not last and you didn't have the money to get more?: Never true Within the past 12 months, did you worry whether your food would run out before you got money to buy more?: Never true Do you have trouble paying for medicines?: No Do you have trouble getting transportation to medical appointments?: No Do you have trouble paying your heating and electricity bill?: No Do you have trouble taking care of your child, family member or friend?: No Do you have trouble with day-to-day activities such as bathing, preparing meals, shopping, managing finances, etc.?: No Are you currently unemployed and looking for a job?: No Are you interested in more education?: No Please select the resources that you would like help with: None THRIVE Score: 0 AUDIT C Alcohol Use Questionnaire (AUDIT-C) 1. How often do you have a drink containing alcohol?: Monthly or less 2. How many drinks containing alcohol do you have on a typical day when you are drinking?: 3 or 4 Total Score: 2 MONY-7 AMB Questionnaire MONY-7 Date MONY - 7 assessed: 12/16/24 Feeling nervous, anxious, or on edge: 3 = Nearly every day Not being able to stop or control worryin = Nearly every day Worrying too much about different things: 3 = Nearly every day Trouble relaxin = Nearly every day Being so restless that it is hard to sit still: 0 = Not at all Becoming easily annoyed or irritable: 0 = Not at all Feeling afraid as if something awful might happen: 3 = Nearly every day Total MONY-7 score (0-4 normal; 5-9 mild; 10-14 moderate; 15-21 severe): 15 Source: Developed by Drs. Denzel Jarquin, Lena Dawkins, Segundo Boyd and colleagues, with an educational laura from [employer]. Review of Systems Const All systems reviewed & are unremarkable except as noted in HPI and below Physical exam (Primary Care) Vital Signs: Last Vital Signs Temp 97.7 F 12/16/24 16:20 Pulse 77 12/16/24 16:20 Resp 16 12/16/24 16:20 BP 114/76 12/16/24 16:20 Pulse Ox 97 12/16/24 16:20 Oxygen Delivery Method Room Air 12/16/24 16:20 BMI result Body Mass Index 24.3 Tobacco/Smoking Status: Tobacco use Status Tobacco use date assessed 12/16/24 12/16/24 16:05 Patient Tobacco Use Status Former Tobacco user 12/16/24 16:20 PHQ-9: PHQ-9 Score PHQ-9: Total score 24 12/16/24 16:29 Thrive Assessment: Date of Thrive Assessment Date Thrive assessed 12/16/24 12/16/24 16:05 Const Other: Constitutional - Awake and Alert, No apparent distress Eyes - PERRLA, EOMI Cardiovascular - S1S2, RRR, No edema Respiratory - Normal lung expansion, Normal respiratory effort, No respiratory distress, CTA bilaterally Breast - L breast with sub centimeter firm nodule at about 10 oclock, no ttp. No erythema or overlying skin changes. No nipple inversion Extremities - no calf tenderness bilaterally, no swelling Skin - Warm/Dry Neurological - Alert & oriented x3 Psychological - Appropriate affect Coding Level of Care Code New Pt Level 4 (43952) Complex EM visit Add On G2211 Diagnoses Left breast lump N63.20 HTN (hypertension) I10 PAF (paroxysmal atrial fibrillation) I48.0 Osteoarthritis M19.90 Insomnia G47.00 Hypothyroid E03.9 Assessment & Plan Assessment & Plan (1) Left breast lump: Code(s): N63.20 - Unspecified lump in the left breast, unspecified quadrant Category: Medical Plan: Discussed with patient and daughter. Pt would like to proceed with U/S left breast and bilateral diagnostic mammogram which are ordered. Results to be discussed and to determine next steps given age and comorbidities. (2) HTN (hypertension): Code(s): I10 - Essential (primary) hypertension Category: Medical Plan: Controlled at 114/76. Continue on hydrochlorothiazide 25 mg daily and lisinopril 20 mg daily. Renal function reviewed and is baseline, electrolyte levels normal. (3) PAF (paroxysmal atrial fibrillation): Code(s): I48.0 - Paroxysmal atrial fibrillation Category: Medical Plan: Rate controlled. Continue Eliquis for anticoagulation. Not on rate-controlling medications. Labs reviewed without any anemia, reassuring given Eliquis use (4) Osteoarthritis: Code(s): M19.90 - Unspecified osteoarthritis, unspecified site Category: Medical Plan: Of multiple joints including bilateral hips, knees, shoulder. Managed well with tramadol and Tylenol. Refill for tramadol provided, mass pat reviewed. Continue diclofenac gel. (5) Insomnia: Code(s): G47.00 - Insomnia, unspecified Category: Medical Plan: Insomnia discontinued. Discussed the risks of Ambien in elderly patients including cognitive and balance issues which could result in falls, especially concerning while on Eliquis. No effect with melatonin. We will trial low-dose trazodone 25 mg nightly. (6) Hypothyroid: Code(s): E03.9 - Hypothyroidism, unspecified Category: Medical Plan: Euthyroid with TSH 1.88, free T4 1.13. Continue levothyroxine as prescribed. Plan Mammogram and ultrasound of the left breast to be performed. Labs to be performed prior to next visit in 4 months. Orders: Orders MM diagnostic mammo BI 12/16/24 N63.20 - Unspecified lump in the left breast, unspecified quadrant US breast LT limited 12/16/24 N63.20 - Unspecified lump in the left breast, unspecified quadrant Medications: New trazodone Take 25 - 50 mg (0.5 - 1 x 50 mg) PO BEDTIME PRN 90 tabs 0RF sleep apixaban (Eliquis) 2.5 mg PO BID 180 tabs 1RF hydrochlorothiazide 25 mg PO DAILY PRN 90 tabs 1RF swelling lisinopril 20 mg PO DAILY 90 tabs 1RF verapamil ER 240 mg PO DAILY 90 tabs 1RF Changed From levothyroxine 50 mcg PO To levothyroxine 50 mcg PO Q2D 90 tabs 0RF
[2024-12-16 16:20] VITALS: BP 114/76; PULSE 77; RESP 16; TEMP 36.5; O2SAT 97; BMI 24.3
--- OUTSIDE RECORDS SUMMARY | 2024-12-16 16:27 | XMS_ITS | CCD ---
Author Name Interface, [id number] Address [address] [place] [address] Organization [facility] Address [address] [place] [address] Allergies and Adverse Reactions Care Plan Reason for Visit Encounters Medications Problems Social History
--- OUTSIDE RECORDS SUMMARY | 2024-12-16 16:27 | XMS_ITS | Clinical Summary ---
Author Organization [facility] Address [address] [place] [address] Care Team Providers Care Torpedo Specialist Name Role Phone System, Provider Not In Primary Care Provider Un available Allergies No known active allergies Medications Eliquis 5 MG tablet Take 5 mg by mouth 2 (two) times a day. 01/31/20 21 Active levothyroxine (SYNTHROID, LEVOTHROID) 50 MCG tablet TAKE ONE TABLET BY MOUTH ONCE DAILY ON SATURDAY, SATURDAY, SATURDAY, Saturday01/31/20 21 Active levothyroxine (SYNTHROID, LEVOTHROID) 75 MCG tablet TAKE ONE TABLET BY MOUTH ONCE DAILY ON SATURDAY, SATURDAY, AND Saturday01/31/20 21 Active lisinopril (PRINIVIL,ZeSTRIL) 20 MG tablet Take 20 mg by mouth daily. 01/04/20 21 Active verapamil (CALAN-SR) 240 MG SR tablet Take 240 mg by mouth daily. 04/01/20 21 Active acetaminophen (TYLENOL) 325 MG tabletIndications: Encounter for aftercare for healing closed traumatic fracture of left femur Take 2 tablets (650 mg total) by mouth every 6 (six) hours around the clock. 240 tablet 04/10/20 21 Active cholecalciferol (VITAMIN D3) 83302 units capsuleIndications :Encounter for aftercare for healing closed traumatic fracture of left femur Take 1 capsule (50,000 Units total) by mouth once a week. Do not start before April 14, 2021. 4 capsule 04/14/20 21 Active calcium carbonate (TUMS) 500 MG chewable tabletIndications: Encounter for aftercare for healing closed traumatic fracture of left femur Chew 2 tablets (1,000 mg total) 2 times daily (every 12 hours) as needed for indigestion or heartburn. 04/10/20 21 Active HYDROmorphone (DILAUDID) oral liquidIndications: Encounter for aftercare for healing closed traumatic fracture of left femur Take 1 mL (1 mg total) by mouth every 3 (three) hours as needed for moderate pain. Max Daily Amount: 8 mg 0 04/10/20 21 Active methocarbamol (ROBAXIN) 500 MG tabletIndications: Encounter for aftercare for healing closed traumatic fracture of left femur Take 1 tablet (500 mg total) by mouth 4 (four) times a day as needed for muscle spasms. 04/10/20 21 Active polyethylene glycol (polyethylene glycol) 17 g packetIndications: Encounter for aftercare for healing closed traumatic fracture of left femur Take 1 packet (17 g total) by mouth daily as needed for constipation. 14 packet 04/10/20 21 Active senna-docusate (SENNA-S) 8.6-50 MGIndications:Enco unter for aftercare for healing closed traumatic fracture of left femur Take 2 tablets by mouth nightly. 60 tablet 04/10/20 21 Active ondansetron (ZOFRAN-ODT) 4 MG disintegrating tabletIndications: Encounter for aftercare for healing closed traumatic fracture of left femur Take 1 tablet (4 mg total) by mouth 4 times daily (every 6 hours) as needed for nausea or vomiting. Place tablet on tongue to dissolve. 20 tablet 04/10/20 21 Active zolpidem (AMBIEN) 5 MG tabletIndications: Encounter for aftercare for healing closed traumatic fracture of left femur Take 1 tablet (5 mg total) by mouth nightly as needed for sleep. 30 tablet 04/10/20 21 Active Active Problems Problem Noted Date Diagnosed Date S/p left hip fracture 04/06/2021 Periprosthetic fracture arou nd internal prosthetic left knee joint 04/06/2021 History of central retinal artery occlusion 03/13 Essential hypertension 04/06/2021 Hypothyroidism 04/06/2021 Pre-op exam 04/06/2021 Family History Medical History Relation Name Comments Heart disease Father Dementia Sister Relation Name Status Comments Father Sister Social History Tobacco Use Types Packs/Day Years Used Date Smoking Tobacco: Never Smokeless Tobacco: Never Alcohol Use Standard Drinks/Week Comments Yes 0 (1 standard drink = 0.6 oz pur e alcohol) Comments No Sex and Gender Information Value Date Recorded Sex Assigned at Not on file Legal Sex Female 10:29 AM EDT Gender Identity Not on file Sexual Orientation Not on file Last Filed Vital Signs Vital Sign Reading Time Taken Comments Blood Pressure 132/63 04/10/2021 2:25 PM EDT Pulse 76 04/10/2021 2:25 PM EDT Temperature 36.9 ??C (98.4 ??F) 04/10/2021 2:25 PM E DT Respiratory Rate 18 04/10/2021 2:25 PM EDT Oxygen Saturation 96% 04/10/2021 2:25 PM EDT Inhaled Oxygen Concentration - - Weight 73.2 kg (161 lb 4.8 oz) 04/07/2021 2:00 P M EDT Height 157.5 cm (5' 2 ) 04/07/2021 2:00 PM EDT Body Mass Index 29.5 04/07/2021 2:00 PM EDT Plan of Treatment Health Maintenance Due Date Last Done Comments DTaP/Tdap/Td Vaccines (1 - Tdap) 1955 Pneumococcal Vaccines 50+ (1 of 1 - PCV) 1986 Zoster (Shingles) Vaccine (1 of 2) 1986 DXA Bone Density (Females,Ag es 65 and older) 2001 RSV Vaccine 60 years and old er and Patients (1 - 1-dose 75+ series) 2011 COVID-19 Vaccine ( - 2023-2 5 season) 2024 Influenza Vaccine 03/12/2025 Hepatitis B Vaccines Aged Out No long er eligible based on patient's age to complete this topic Medical Devices Implanted Type Area Organ Pipe Voicer Device Identifier Shelf Expiration Date Model / Serial / Lot Plate Cndrl Periart Left 336m 16 Hole 4 Clmn Thrd Va Curve - [id number] Implanted:Qty: 1 on 04/07/2021 by Lior Henderson MD at [facility] Plate [employer]PU[employer] - A / / 83 Screw Bone Jeff Flthrd 30mm Ss 2.7mm Slftp Sm Hex Socket - [id number] Implanted:Qty: 1 on 04/07/2021 by Lior Henderson MD at [facility] Screw Left: Femur [employer] - A 202.830 / / 214.836 Screw Bone Jeff 3.5mm 36mm Ss 4.5mm 8mm Slftp Lg Hex Nonst - [id number] Implanted:Qty: 1 on 04/07/2021 by Lior Henderson MD at [facility] Screw [employer]STRU[employer] - A 214.836 / / 214.840 Screw Bone Jeff 3.5mm 40mm Ss 4.5mm 8mm Slftp Lg Hex Socket - [id number] Implanted:Qty: 1 on 04/07/2021 by Lior Henderson MD at [facility] Screw [employer] JO[employer]STRU[employer] - A 214.840 / / 204.830 Screw Bone Jeff 2.5mm Flthrd 30mm Ss 3.5mm Slftp Lp Sm Hex - [id number] Implanted:Qty: 1 on 04/07/2021 by Lior Henderson MD at [facility] Screw Left: Femur [employer] - A 204.830 / / 204.832 Screw Bone Jeff 2.5mm Flthrd 32mm Ss 3.5mm Slftp Lp Sm Hex - [id number] Implanted:Qty: 1 on 04/07/2021 by Lior Henderson MD at [facility] Screw Left: Femur [employer] - A 204.832 / / 02.231.670 Screw Bone 3.5mm Flut 70mm Ss 5mm Veronika Self Drill Lock Va - [id number] Implanted:Qty: 2 on 04/07/2021 by Lior Henderson MD at [facility] Screw [employer] JO[employer]ONSTRU[employer] - A .231.670 / / .231.620 Screw Bone 20mm 5mm Va Veronika Lock - [id number] Implanted:Qty: 1 on 04/07/2021 by Lior Henderson MD at [facility] Screw [employer] JO[employer] RECONSTRUCTION - A .231.620 / / .231.625 Screw Bone 25mm 5mm Va Veronika Lock - [id number] Implanted:Qty: 1 on 04/07/2021 by Lior Henderson MD at [facility] Screw [employer]PU[employer] JOINT RECONSTRUCTION - A .625 / / .655 Screw Bone 3.5mm Flut 55mm Ss 5mm Veronika Self Drill Lock Va - [id number] Implanted:Qty: 1 on 04/07/2021 by Lior Henderson MD at [facility] Screw [employer]PU[employer] JOINT RECONSTRUCTION - A .655 / / .665 Screw Bone 3.5mm Flut 65mm Ss 5mm Veronika Self Drill Lock Va - [id number] Implanted:Qty: 1 on 04/07/2021 by Lior Henderson MD at [facility] Screw [employer] JO[employer] RECONSTRUCTION - A .665 / / 214.834 Screw Bone Jeff 3.5mm 34mm Ss 4.5mm 8mm Slftp Lg Hex Socket - [id number] Implanted:Qty: 2 on 04/07/2021 by Lior Henderson MD at [facility] Screw [employer] JO[employer]ONSTRUCTION - A 214.834 / / 298.801.01s Cable Orthopedic Ss 1.7mm 750mm Crmp Nonst Lcp - [id number] Implanted:Qty: 1 on 04/07/2021 by Lior Henderson MD at [facility] Wire Left: Femur [employer] JO[employer] REC[employer] - A 08/11/2025 [id number] S / / [id number] Insurance MEDICARE PART A & B [facility] MEDICARE PART A & B [facility] Advance Directives * Full Code (Latest Code Status on File) Date Activated Date Inactivated Comments 04/06/2021 2:55 PM Care Teams Torpedo Specialist Relationship Specialty Start Date End Date System, Provider Not In PCP - General 05/12/23
--- OUTSIDE RECORDS SUMMARY | 2024-12-16 16:27 | XMS_ITS ---
Author Name Interface, [id number] Address [address] [place] [address] Organization [facility] [place] Address [address] [place] [address] Care Team Providers Care Medical Apparatus Model Maker Name Role Phone Kelsey Rey Unavailable Unavailable Allergies and Adverse Reactions Medication/Group Name Reaction Severity Date No known allergies Plan Date Type Value 09/29/2018 APPOINTMENT Follow-up Amiade ariane 09/29/2018 APPOINTMENT CMP 09/29/2018 APPOINTMENT CBC auto differe ntial 09/29/2018 LABORDER CMP 09/29/2018 LABORDER CBC auto differe ntial Reason for Visit CBC auto differential Encounters Date Name 09/29/2018 Melanoma Diagnostic Results Date Type Test Units Lower Limit Upper Limit Result Flag Comments Status Ordered By Specimen Source Lab Address 09/29 CBC w/ auto diff WBC x10^3/ uL 4.7 Blood 09/29 CBC w/ auto diff RBC x10^6/ uL 3.87 Low Blood 09/29 CBC w/ auto diff HGB g/dL 12.1 Blood 09/29 CBC w/ auto diff HCT % 38.5 Blood 09/29 CBC w/ auto diff MCV fL 99.5 High Blood 09/29 CBC w/ auto diff MCH pg 31.3 Blood 09/29 CBC w/ auto diff MCHC g/dL 31.4 Blood 09/29 CBC w/ auto diff RDW % 13.8 Blood 09/29 CBC w/ auto diff PLT x10^3/ uL 298 Blood 09/29 CBC w/ auto diff MPV fL 9.0 Blood 09/29 CBC w/ auto diff Parvin # (ANC) x10^3/ uL 2.4 Blood 09/29 Total prote in g/dL 5.9 8.4 6.0 FINAL [facility], [address] [place] [address] [place] [address] Reinaldo curtis M.D. 09/29 Album in g/dL 3.5 5.2 3.8 FINAL [facility], [address] [place] [address] [place] [address] Reinaldo curtis M.D. 09/29 Globu lyla g/dL 1.7 3.7 2.2 FINAL [facility], [address] [place] [address] [place] [address] Reinaldo curtis M.D. 09/29 A/G ratio 1.1 2.9 1.7 FINAL [facility], [address] [place] [address] [place] [address] Reinaldo curtis M.D. 09/29 Sodiu m mmol/L 136.0 145.0 136 FINAL [facility], [address] [place] [address] [place] [address] Reinaldo curtis M.D. 09/29 Potas sium mmol/L 3.6 5.6 3.9 FINAL [facility], [address] [place] [address] Reinaldo cutris M.D. 09/29 Chlor flor mmol/L 96.0 108.0 91 Low FINAL [facility], [address] [place] [address] Reinaldo curtis M.D. 09/29 CO2 mmol/L 22.0 29.0 33 High FINAL [facility], [address] [place] [address] [place] [address] Reinaldo curtis M.D. 09/29 BUN mg/dL 8.0 23.0 18 FINAL [facility], [address] [place] [address] [place] [address] Reinaldo curtis M.D. 09/29 Creat inine mg/dL 0.49 1.02 0.91 FINAL [facility], [address] [place] [address] [place] [address] Reinaldo curtis M.D. 09/29 GFR non-A frica n Ameri can, estim ated mL/min 59 Low FINAL [facility], [address] [place] [address] [place] [address] Reinaldo curtis M.D. 09/29 GFR Afric an Ameri can, estim ated mL/min 68 FINAL [facility], [address] [place] [address] [place] [address] Reinaldo curtis M.D. 09/29 BUN/C reati nine ratio 10.0 28.0 19.8 FINAL [facility], [address] [place] [address] [place] [address] Reinaldo curtis M.D. 09/29 Calci um mg/dL 8.6 10.4 9.4 FINAL [facility], [address] [place] [address] [place] [address] Reinaldo curtis M.D. 09/29 Bilir ubin, total mg/dL 0.3 FINAL [facility], [address] [place] [address] [place] [address] Reinaldo curtis M.D. 09/29 Alkal ine phosp hatas e U/L 40.0 156.0 55 FINAL [facility], [address] [place] [address] [place] [address] Reinaldo curtis M.D. 09/29 AST/S GOT U/L 16 FINAL [facility], [address] [place] [address] [place] [address] Reinaldo curtis M.D. 09/29 ALT/S GPT U/L 11 FINAL [facility], [address] [place] [address] [place] [address] Reinaldo curtis M.D. 09/29 Gluco se mg/dL 70.0 99.0 87 FINAL [facility] [place] [facility], [address] [facility] [address] Reinaldo curtis M.D. Medications Date Name Route Dose Frequency Instructions Start Date End Date Status Levothyroxine Oral active Potassium Chloride Oral ER Tab active Furosemide Oral PRN a ctive Lisinopril-Hydrochl orothiazide Oral 20 mg-25 mg active Verapamil Oral ER Tab active Apixaban Oral act kira Tramadol Oral QID act kira Problems Diagnosis Status Date of Diagnosi s Osteoarthritis (disorder) Active Melanoma Active Osteopenia Active A fib Active Hypothyroidism (disorder) Active Breast cancer Active Vital Signs Date Type Value 09/29/2018 Body Temperature 97.50 09/29/2018 Heart Beat 76.00 09/29/2018 Respiratory Rate 16.00 09/29/2018 Intravascular Systolic 120 09/29/2018 Intravascular Diastolic 90 09/29/2018 BSA 1.68 09/29/2018 Weight 152.00 09/29/2018 Height 61.00 09/29/2018 BMI 28.72 09/29/2018 Pain Scale 0.00 Notes Section * Nurse Note for: 29-SEP-18 [facility] Nurse Note Print Location: Unknown Date/Time Printed: 12/16/2024 04:27 PM ([facility]) Patient: JEANNINE GOLDTSEIN Sex: Female : 1935 Date of Service: 09/29/2018 Allergies : No Known Allergies Vital Signs : Time: 10:16 AM. Weight: 152 (lb) . Height: 61 (in) . BMI: 28.72 (kg/m2) . BSA: 1.68 (m2) . Temperature: 97.5 (F) . Pulse: 76 (/min) . Respirations: 16 (/min) . Blood pressure: 120/90 (mm Hg). Pain Scale: 0. Entered by Lani Winters 09/29/2018 10:16 AM Patient Assessment : Negative results Assessment : Denies Pain -0-No pain. Entered By Lani Winters on 10:16 AM IV Access/Lab Draw : IV Access-Lab Draw Only - Peripheral vein (venipuncture), Entered By Lani Winters on 10:16 AM Procedures : Complete blood count with white cell differential, automated (procedure) - Associated Problem(s): Melanoma *; Selected Billing Code(s): BLOOD COUNT COMPLETE AUTO&AUTO DIFRNTL WBC (77787) Entered By Lani Winters; Incident to Kelsey Rey MD
--- OUTSIDE RECORDS SUMMARY | 2024-12-16 16:28 | XMS_ITS ---
Author Name [facility] Organization Unknown History of Medication Use Medication Directions Dispensed Refills Start Date End Date Stat acetaminophen (TYLENOL) 325 MG tablet Take 2 tablets (650 mg total) by mouth every 6 (six) hours around the clock. 04/10/2021 active calcium carbonate (TUMS) 500 MG chewable tablet Chew 2 tablets (1,000 mg total) 2 times daily (every 12 hours) as needed for indigestion or heartburn. 04/10/2021 active HYDROmorphone (DILAUDID) oral liquid Take 1 mL (1 mg total) by mouth every 3 (three) hours as needed for moderate pain. Max Daily Amount: 8 mg 04/10/2021 active methocarbamol (ROBAXIN) 500 MG tablet Take 1 tablet (500 mg total) by mouth 4 (four) times a day as needed for muscle spasms. 04/10/2021 active ondansetron (ZOFRAN-ODT) 4 MG disintegrating tablet Take 1 tablet (4 mg total) by mouth 4 times daily (every 6 hours) as needed for nausea or vomiting. Place tablet on tongue to dissolve. 04/10/2021 active polyethylene glycol (polyethylene glycol) 17 g packet Take 1 packet (17 g total) by mouth daily as needed for constipation. 04/10/2021 active verapamil (CALAN-SR) 240 MG SR tablet Take 240 mg by mouth daily. 04/01/2021 active levothyroxine (SYNTHROID, LEVOTHROID) 50 MCG tablet TAKE ONE TABLET BY MOUTH ONCE DAILY ON SATURDAY, SATURDAY, SATURDAY, Saturday01/30/2021 active levothyroxine (SYNTHROID, LEVOTHROID) 75 MCG tablet TAKE ONE TABLET BY MOUTH ONCE DAILY ON SATURDAY, SATURDAY, AND Saturday01/30/2021 active Problems Problem Status Onset Date Problem Type Date of Resolution Source Essential hypertension active 2021-04-06 ProblemAct [facility] History of central retinal artery occlusion active 2021-04-06 ProblemAct [facility] Periprosthetic fracture around internal prosthetic left knee joint, subsequent encounter active EncounterDiagnosisAct [facility] S/p left hip fracture active 2021-04-06 ProblemAct [facility] Pain of right hip active EncounterDiagnosisAct [facility] Primary osteoarthritis of right hip active EncounterDiagnosisAct [facility] Periprosthetic fracture around internal prosthetic left knee joint active 2021-04-06 ProblemAct [facility] Hypothyroidism active 2021-04-06 ProblemAct [facility] Encounters Encounter Type Encounter Reason Primary Diagnosis Location Date Ambulatory [facility] 05/30/2023 Ambulatory Pain in right hip [facility]23 Care Team Organization Name Specialty Phone Email Start Date End Da te [facility] 05/30/2023 10/28/2024 [facility] 05/30/2023 05/30/2023 [facility] PROVIDER SYSTEM Primary Care 05/30/20232022
== END 2024-12-16 16:45 | disposition home or self-care (01) ==
LOC: HO.HMCHD 15:55
PROVIDERS: PCP Internal Medicine; Visit Provider Physician Assistant
DX: N63.20 Unspecified lump in the left breast, unspecified quadrant (principal); I10 Essential (primary) hypertension; I48.0 Paroxysmal atrial fibrillation; M19.90 Unspecified osteoarthritis, unspecified site; G47.00 Insomnia, unspecified; E03.9 Hypothyroidism, unspecified

== ENCOUNTER → 2024-12-16 15:55 | Outpatient (BNVA) | payer MEDICARE, SELFPAY | PROVIDERS: PCP Internal Medicine; Visit Provider Physician Assistant | DX: N63.20 Unspecified lump in the left breast, unspecified quadrant (principal); I10 Essential (primary) hypertension; I48.0 Paroxysmal atrial fibrillation; M19.90 Unspecified osteoarthritis, unspecified site; G47.00 Insomnia, unspecified; E03.9 Hypothyroidism, unspecified; Z79.01 Long term (current) use of anticoagulants; Z79.899 Other long term (current) drug therapy | CPT/HCPCS: 96127; 99202 ==

== ENCOUNTER 2025-02-25 12:49 | Outpatient (REF) | payer MEDICARE, SELFPAY ==
--- NOTE | ~2025-02-25 | MM_ITS ---
EXAMINATION: MM DIAGNOSTIC DIGITAL BREAST TOMOSYNTHESIS, BILATERAL Limited left breast ultrasound. CLINICAL INFORMATION: New left breast skin lesion upper central breast posterior depth. COMPARISON: Mammography: Comparison is made with relevant prior exams. TECHNIQUE: Digital breast mammography with tomosynthesis is performed in both the craniocaudal and mediolateral oblique views along with computer-aided detection (CAD). FINDINGS: There are scattered areas of fibroglandular density (ACR BI-RADS breast composition Category b). Left: BB marker in the upper central breast posterior depth with underlying focal asymmetry localizing to the skin. No suspicious calcifications or other abnormal findings. Targeted color Doppler ultrasound in the left breast demonstrates an intradermal oval hypoechoic mass consistent with a sebaceous cyst/epidermal inclusion cyst at 11:00 12 cm from the nipple measuring 11 x 4 x 13 mm. Right: There are no significant masses, abnormal calcifications, or other abnormalities. Results are discussed with the patient at time of visit. MM/MM tomosynthesis diagnostic BI IMPRESSION: : Negative. Left: New intradermal hypoechoic mass could be consistent with sebaceous cyst/epidermal inclusion cyst in the left breast. Recommend breast surgical consultation or dermatology consultation for further evaluation and confirmation. ASSESSMENT: BI-RADS BI-RADS 2 - Benign Findings RECOMMENDATION: 1. Patient should be managed based on the clinical impression. 2. Otherwise, routine annual screening mammography. This patient's information was entered into a reminder system with a target due date for their next mammogram. Electronically signed by: Gabby Padilla DO 02/25/2025 02:00 PM EDT
--- OUTSIDE RECORDS SUMMARY | 2025-02-25 13:14 | XMS_ITS ---
Author Name [facility] Organization Unknown History of Medication Use Medication [...] 2021-04-06 ProblemAct [facility] Hypothyroidism active 2021-04-[address] [facility] CT Encounters Encounter Type Encounter Reason Primary Diagnosis Location Date Ambulatory [facility] 05/30/2023 Ambulatory [facility] right [facility] [employer] [facility]/30/2023 Care Team Organization Name Specialty Phone Email Start Date End Da te [facility] 05/30/2023 10/28/2024 [facility] 05/30/2023 05/30/2023 [facility] PROVIDER SYSTEM Primary Care 05/30/20232022
--- OUTSIDE RECORDS SUMMARY | 2025-02-25 13:14 | XMS_ITS | Clinical Summary ---
Author Organization [facility] Address [address] [place] [address] Care Team Providers Care Documentum Consultant Name Role Phone System, Provider Not In [...] tablet 04/10/20 21 Active cholecalciferol (VITAMIN D3) 02205 units capsuleIndications :Encounter for aftercare for healing [...] 76 04/10/2021 2:25 PM EDT Temperature 36.9 C (98.4 F) 04/10/2021 2:25 PM EDT Respiratory Rate 18 04/10/2021 2:25 PM EDT [...] this topic Medical Devices Implanted Type Area Pole Framer Machine Device Identifier Shelf Expiration Date Model / Serial / Lot Plate Cndrl Periart Left 336m 16 Hole 4 Clmn Thrd Va Curve - [id number] Implanted:Qty: 1 on 04/07/2021 by Lior Henderson MD at [facility] Plate DEPUY JOINT RECONSTRUCTION - A / / 83 Screw Bone Jeff Flthrd 30mm Ss 2.7mm Slftp Sm Hex Socket - [id number] Implanted:Qty: 1 on 04/07/2021 by Lior Henderson MD at [facility] Screw Left: Femur DEPUY JOINT RECONSTRUCTION - A 202.830 / / 214.836 Screw Bone Jeff 3.5mm 36mm Ss 4.5mm 8mm Slftp Lg Hex Nonst - [id number] Implanted:Qty: 1 on 04/07/2021 by Lior Henderson MD at [facility] Screw DEPUY JOINT RECONSTRUCTION - A 214.836 / / 214.840 Screw Bone Jeff 3.5mm 40mm Ss 4.5mm 8mm Slftp Lg Hex Socket - [id number] Implanted:Qty: 1 on 04/07/2021 by Lior Henderson MD at [facility] Screw DEPUY JOINT RECONSTRUCTION - A 214.840 / / 204.830 Screw Bone Jeff 2.5mm Flthrd 30mm Ss 3.5mm Slftp Lp Sm Hex - [id number] Implanted:Qty: 1 on 04/07/2021 by Lior Henderson MD at [facility] Screw Left: Femur DEPUY JOINT RECONSTRUCTION - A 204.830 / / 204.832 Screw Bone Jeff 2.5mm Flthrd 32mm Ss 3.5mm Slftp Lp Sm Hex - [id number] Implanted:Qty: 1 on 04/07/2021 by Lior Henderson MD at [facility] Screw Left: Femur DEPUY JOINT RECONSTRUCTION - A 204.832 / / 02.231.670 Screw Bone 3.5mm Flut 70mm Ss 5mm Veronika Self Drill Lock Va - [id number] Implanted:Qty: 2 on 04/07/2021 by Lior Henderson MD at [facility] Screw DEPUY JOINT RECONSTRUCTION - A .231.670 / / .231.620 Screw Bone 20mm 5mm Va Veronika Lock - [id number] Implanted:Qty: 1 on 04/07/2021 by Lior Henderson MD at [facility] Screw DEPUY JOINT RECONSTRUCTION - A .231.620 / / .231.625 Screw Bone 25mm 5mm Va Veronika Lock - [id number] Implanted:Qty: 1 on 04/07/2021 by Lior Henderson MD at [facility] Screw DEPUY JOINT RECONSTRUCTION - A .625 / / 655 Screw Bone 3.5mm Flut 55mm Ss 5mm Veronika Self Drill Lock Va - [id number] Implanted:Qty: 1 on 04/07/2021 by Lior Henderson MD at [facility] Screw DEPUY JOINT RECONSTRUCTION - A .655 / / .665 Screw Bone 3.5mm Flut 65mm Ss 5mm Veronika Self Drill Lock Va - [id number] Implanted:Qty: 1 on 04/07/2021 by Lior Henderson MD at [facility] Screw DEPUY JOINT RECONSTRUCTION - A .665 / / .834 Screw Bone Jeff 3.5mm 34mm Ss 4.5mm 8mm Slftp Lg Hex Socket - [id number] Implanted:Qty: 2 on 04/07/2021 by Lior Henderson MD at [facility] Screw DEPUY JOINT RECONSTRUCTION - A 214.834 / / 298.801.01s Cable Orthopedic Ss 1.7mm 750mm Crmp Nonst Lcp - [id number] Implanted:Qty: 1 on 04/07/2021 by Lior Henderson MD at [facility] Wire Left: Femur DEPUY JOINT RECONSTRUCTION - A 08/11/2025 298.801.01 S / / [id number] Insurance MEDICARE PART A & B [facility] MEDICARE PART A & B [facility] Advance Directives * Full Code (Latest Code Status on File) Date Activated Date Inactivated Comments 04/06/2021 2:55 PM Care Teams Documentum Consultant Relationship Specialty Start Date End Date System, Provider Not In PCP - General 05/12/23
--- OUTSIDE RECORDS SUMMARY | 2025-02-25 13:14 | XMS_ITS | CCD ---
Author Name Interface, [id number] [facility] Address [address] [place] [address] Organization [facility] Address [address] [place] [address] Allergies and Adverse Reactions Medication/Group Name Reaction Severity Date No known allergies Reason for Visit CBC auto differential Medications Date Name Route Dose Frequency Instructions Start Date End Date Status Furosemide Oral PRN a ctive Tramadol Oral QID act kira Levothyroxine Oral active Turmeric (Curcumin) Oral stopped Verapamil Oral ER Tab active Potassium Chloride Oral ER Tab active Lisinopril-Hydrochl orothiazide Oral 20 mg-25 mg active Apixaban Oral act kira Problems Diagnosis Status Date of Diagnosis Resolution Date Osteoarthritis (disorder) Active Melanoma Active Osteopenia Active A fib Active Hypothyroidism (disorder) Active Breast cancer Active Social History Date Name Value Sex Female
== END 2025-02-25 12:50 | disposition home or self-care (01) ==
LOC: HO.MAMMO 12:49
PROVIDERS: PCP Internal Medicine; Visit Provider Internal Medicine
DX: N63.22 Unspecified lump in the left breast, upper inner quadrant (principal)
CPT/HCPCS: 76642; 77062; 77066

== ENCOUNTER → 2025-02-25 13:30 | Outpatient (BNV) | payer MEDICARE, SELFPAY | PROVIDERS: PCP Internal Medicine; Visit Provider Internal Medicine | DX: N63.22 Unspecified lump in the left breast, upper inner quadrant (principal); L72.0 Epidermal cyst | CPT/HCPCS: 76642; 77066; G0279 ==

== ENCOUNTER 2025-04-14 14:14 | Outpatient (AMB) | payer MEDICARE, SELFPAY ==
--- NOTE | 2025-04-14 14:31 | A.OFFPC_ITS ---
Vital Signs 04/14/25 14:41 04/14/25 14:56 Height 5 ft 2 in Weight 61.689 kg BMI 24.9 BP 142/70 H 130/74 Pulse 73 Pulse Source Pulse Oximeter Temp 97.8 F Temp Source Temporal Artery Scan Pulse Oximetry (%) 98 Oxygen Delivery Method Room Air Intake Visit Reasons: 4 Month F/U Surgical Technician Required: No Accompanied by: Son Allergies No Known Allergies Allergy (Verified 04/14/25 14:34) Medication List - Last Reconciled 04/14/25 by SENIA Ley acetaminophen ER (Tylenol Arthritis Pain) 650 mg PO Q12H PRN albuterol sulfate 90 mcg/actuation 90 mcg inhalation Q4H PRN albuterol sulfate 90 mcg/actuation (Ventolin HFA) 2 puffs inhalation Q6H PRN apixaban (Eliquis) 2.5 mg PO BID diclofenac sodium 3% 0.1 grams topical TID gabapentin 300 mg PO BEDTIME hydrochlorothiazide 25 mg PO DAILY PRN levothyroxine 75 mcg PO DAILY levothyroxine 50 mcg PO Q2D lisinopril 20 mg PO DAILY melatonin 10 mg PO BEDTIME PRN tramadol 50 mg PO BID verapamil ER 240 mg PO DAILY Tobacco use date assessed: 12/16/24 Dental Screening Dental Screen Date: 12/16/24 HPI HPI Comments History of Present Illness Details 89-year-old female with history of hyper tension, hypothyroidism, mild intermittent asthma, paroxysmal atrial fibrillation, insomnia, and osteoarthritis presents to the office today for routine follow-up. Here with her son. Hypertension-on hydrochlorothiazide 25 mg, lisinopril 20 mg. Blood pressure on recheck 130/74 Asthma-no recent exacerbation. Albuterol p.r.n. Paroxysmal atrial fibrillation-2.5 mg Eliquis b.i.d.. Verapamil for rate control. No longer following with Cardiology Osteoarthritis- tramadol p.r.n. somewhat helpful. Occ needs to double dose. Also using diclofenac gel. Now knees, shoulder. Very stiff in the morning. Does not feel like the tramadol is helping enough. No falls Concerns: Pain as above ROS: See HPI EXAM: Constitutional - Awake and Alert, No apparent distress Eyes - PERRL Cardiovascular - S1S2, RRR, No edema Respiratory - Normal lung expansion, Normal respiratory effort, No respiratory distress, CTA bilaterally Extremities - no calf tenderness bilaterally, no swelling Skin - Warm/Dry Neurological - Alert & oriented x3 Psychological - Appropriate affect PFSH Medical History (Updated 04/14/25 @ 14:55 by SENIA Ley) Osteoarthritis of right hip Osteoarthritis of right glenohumeral joint Osteoarthritis of knees, bilateral Osteoarthritis of left hip History of healed fragility fracture Blood clot in eye Asthma Hypothyroid HTN (hypertension) Surgical History History of bunionectomy of right great toe History of left hip replacement History of bilateral knee replacement History of surgery Family History Father Aortic aneurysm Mother No problems noted. 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 RX glasses) Questionnaire Thrive Questionnaire Date Thrive assessed: 12/16/24 MONY-7 AMB Questionnaire MONY-7 Date MONY - 7 assessed: 12/16/24 Source: Developed by Drs. Denzel Jarquin, Lena Dawkins, Segundo Boyd and colleagues, with an educational laura from [employer]. Physical exam (Primary Care) Vital Signs: Last Vital Signs Temp 97.8 F 04/14/25 14:41 Pulse 73 04/14/25 14:41 BP 130/74 04/14/25 14:56 Pulse Ox 98 04/14/25 14:41 Oxygen Delivery Method Room Air 04/14/25 14:41 BMI result Body Mass Index 24.9 Tobacco/Smoking Status: Tobacco use Status Tobacco use date assessed 12/16/24 04/14/25 14:33 Patient Tobacco Use Status Former Tobacco user 04/14/25 14:33 Thrive Assessment: Date of Thrive Assessment Date Thrive assessed 12/16/24 04/14/25 14:33 Coding Level of Care Code Est Pt Level 4 (95852) Diagnoses Osteoarthritis involving multiple joints on both sides of body M15.9 Hypothyroid E03.9 HTN (hypertension) I10 Atrial fibrillation I48.91 Assessment & Plan Assessment & Plan (1) Osteoarthritis involving multiple joints on both sides of body: Code(s): M15.9 - Polyosteoarthritis, unspecified Category: Medical Plan: Add gabapentin 300 mg nightly. Continue tramadol as prescribed. Referred to pain management. (2) Hypothyroid: Code(s): E03.9 - Hypothyroidism, unspecified Category: Medical Plan: Continue levothyroxine (3) HTN (hypertension): Code(s): I10 - Essential (primary) hypertension Category: Medical Plan: Controlled on recheck. Continue current therapies (4) Atrial fibrillation: Code(s): I48.91 - Unspecified atrial fibrillation Category: Medical Plan: Rate controlled. Continue verapamil and Eliquis for anticoagulation Plan Follow-up in the office in 3 months, sooner if needed Orders: Referrals Pain Management Referral M15.9 - Polyosteoarthritis, unspecified Medications: New gabapentin 300 mg PO BEDTIME 90 caps 1RF
[2025-04-14 14:41] VITALS: BP 142/70; PULSE 73; TEMP 36.6; O2SAT 98; BMI 24.9
[2025-04-14 14:56] VITALS: BP 130/74
--- OUTSIDE RECORDS SUMMARY | 2025-04-14 16:36 | XMS_ITS | CCD ---
Author Name Interface, [id number] [facility] Address [address] [place] [address] Organization [facility] Address [address] [place] [address] Allergies and Adverse Reactions Medication/Group Name Reaction [...]
--- OUTSIDE RECORDS SUMMARY | 2025-04-14 16:36 | XMS_ITS ---
Author Name Interface, [id number] [facility] Address [address] [place] [address] Organization [facility] Address [address] [place] [address] Allergies and Adverse Reactions Plan Reason for Visit Encounters Diagnostic Results Medications Problems Vital Signs Notes Section
--- OUTSIDE RECORDS SUMMARY | 2025-04-14 16:36 | XMS_ITS | Clinical Summary ---
Author Organization [facility] Address [address] [place] [address] Care Team Providers Care Shellfish Shucker Name Role Phone System, Provider Not In [...] tablet 04/10/20 21 Active cholecalciferol (VITAMIN D3) 27187 units capsuleIndications :Encounter for aftercare for healing [...] Health Maintenance Due Date Last Done Comments Advance Care Planning 1936 DTaP/Tdap/Td Vaccines (1 - Tdap) 1955 Pneumococcal [...] this topic Medical Devices Implanted Type Area Pearl Hand Device Identifier Shelf Expiration Date Model / Serial / Lot 124.417 Plate Cndrl Periart Left 336m 16 Hole 4 Clmn Thrd Va Curve - [id number] Implanted:Qty: 1 on 04/07/2021 by Lior Henderson MD at [facility] Plate [employer] - A KATHERINE AN 417 / / 202.830 Screw Bone Jeff Flthrd 30mm Ss 2.7mm Slftp Sm Hex Socket - [id number] Implanted:Qty: 1 on 04/07/2021 by Lior Henderson MD at [facility] Screw Left: Femur [employer] - A KATHERINE AN 202.830 / / 214.836 Screw Bone Jeff 3.5mm 36mm Ss 4.5mm 8mm Slftp Lg Hex Nonst - [id number] Implanted:Qty: 1 on 04/07/2021 by Lior Henderson MD at [facility] Screw [employer] - A KATHERINE AN 214.836 / / 214.840 Screw Bone Jeff 3.5mm 40mm Ss 4.5mm 8mm Slftp Lg Hex Socket - [id number] Implanted:Qty: 1 on 04/07/2021 by Lior Henderson MD at [facility] Screw [employer] - A KATHERINE AN 214.840 / / 204.830 Screw Bone Jeff 2.5mm Flthrd 30mm Ss 3.5mm Slftp Lp Sm Hex - [id number] Implanted:Qty: 1 on 04/07/2021 by Lior Henderson MD at [facility] Screw Left: Femur [employer] - A KATHERINE AN 204.830 / / 204.832 Screw Bone Jeff 2.5mm Flthrd 32mm Ss 3.5mm Slftp Lp Sm Hex - [id number] Implanted:Qty: 1 on 04/07/2021 by Lior Henderson MD at [facility] Screw Left: Femur [employer] - A KATHERINE AN 204.832 / / 231.670 Screw Bone 3.5mm Flut 70mm Ss 5mm Veronika Self Drill Lock Va - [id number] Implanted:Qty: 2 on 04/07/2021 by Lior Henderson MD at [facility] Screw [employer] - A KATHERINE AN .670 / / .620 Screw Bone 20mm 5mm Va Veronika Lock - [id number] Implanted:Qty: 1 on 04/07/2021 by Lior Henderson MD at [facility] Screw [employer] - A KATHERINE AN .620 / / .625 Screw Bone 25mm 5mm Va Veronika Lock - [id number] Implanted:Qty: 1 on 04/07/2021 by Lior Henderson MD at [facility] Screw [employer] - A KATHERINE AN 231.625 / / 655 Screw Bone 3.5mm Flut 55mm Ss 5mm Veronika Self Drill Lock Va - [id number] Implanted:Qty: 1 on 04/07/2021 by Lior Henderson MD at [facility] Screw [employer] - A KATHERINE AN .655 / / .665 Screw Bone 3.5mm Flut 65mm Ss 5mm Veronika Self Drill Lock Va - [id number] Implanted:Qty: 1 on 04/07/2021 by Lior Henderson MD at [facility] Screw [employer] - A KATHERINE AN .231.665 / / 214.834 Screw Bone Jeff 3.5mm 34mm Ss 4.5mm 8mm Slftp Lg Hex Socket - [id number] Implanted:Qty: 2 on 04/07/2021 by Lior Henderson MD at [facility] Screw [employer] - A KATHERINE AN 214.834 / / 298.801.01s Cable Orthopedic Ss 1.7mm 750mm Crmp Nonst Lcp - [id number] Implanted:Qty: 1 on 04/07/2021 by Lior Henderson MD at [facility] Wire Left: Femur [employer] - A KATHERINE AN 08/11/2025 298.801.01 S / / [id number] Insurance MEDICARE PART A & B Member Subscriber Plan / Payer (Ef fective 2001-Present) Name:Carlyn Burr Member ID:[id number] Relation to Subscriber:Self Name:Carlyn Burr Subscriber ID:[id number] Payer ID:[id number] Group ID:Not on file Type:Not on file Address: [address] [address] [facility] MEDICARE PART A & B Member Subscriber Plan / Payer (Ef fective 2001-Present) Name:Carlyn Burr Member ID:[id number] Relation to Subscriber:Self Name:Carlyn Burr Subscriber ID:[id number] Payer ID:[id number] Group ID:Not on file Type:Not on file Address: [address] [address] [facility] Advance Directives * Full Code (Latest Code Status on File) Date Activated Date Inactivated Comments 04/06/2021 2:55 PM Care Teams Shellfish Shucker Relationship Specialty Start Date End Date System, Provider Not In PCP - General 05/12/23
== END 2025-04-14 15:00 | disposition home or self-care (01) ==
LOC: HO.HMCHD 14:15
PROVIDERS: PCP Internal Medicine; Visit Provider Physician Assistant
DX: M15.9 Polyosteoarthritis, unspecified (principal); E03.9 Hypothyroidism, unspecified; I10 Essential (primary) hypertension; I48.91 Unspecified atrial fibrillation

== ENCOUNTER → 2025-04-14 14:14 | Outpatient (BNVA) | payer MEDICARE, SELFPAY | PROVIDERS: PCP Internal Medicine; Visit Provider Physician Assistant | DX: M15.9 Polyosteoarthritis, unspecified (principal); E03.9 Hypothyroidism, unspecified; I10 Essential (primary) hypertension; I48.0 Paroxysmal atrial fibrillation; J45.909 Unspecified asthma, uncomplicated; Z79.01 Long term (current) use of anticoagulants; Z79.891 Long term (current) use of opiate analgesic; Z79.899 Other long term (current) drug therapy | CPT/HCPCS: 99212 ==

== ENCOUNTER 2025-07-26 14:50 | Outpatient (AMB) | payer MEDICARE, SELFPAY ==
--- NOTE | 2025-07-26 15:01 | MHC.PC.OV ---
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: No Accompanied by: Daughter Allergies No Known Allergies Allergy (Verified 07/26/25 15:07) Medication List - Last Reconciled 07/26/25 by SENIA Ley acetaminophen ER (Tylenol Arthritis Pain) 650 mg PO Q12H PRN albuterol sulfate 90 mcg/actuation 90 mcg inhalation Q4H PRN albuterol sulfate 90 mcg/actuation (Ventolin HFA) 2 puffs inhalation Q6H PRN apixaban (Eliquis) 2.5 mg PO BID diclofenac sodium 3% 0.1 grams topical TID fluticasone furoate-vilanterol 100-25 mcg/dose (Breo Ellipta) 1 inh inhalation DAILY gabapentin 300 mg PO BEDTIME levothyroxine 75 mcg PO DAILY levothyroxine 50 mcg PO Q2D lisinopril 20 mg PO DAILY melatonin 10 mg PO BEDTIME PRN tramadol 50 mg PO BID PRN verapamil ER 240 mg PO DAILY walker (Ultra-Light Rollator misc) DME/rollator/walker Tobacco use date assessed: 07/26/25 Fall risk assessment: No Falls in past year Last assessed Fall Risk: 07/26/25 Dental Screening Dental Screen Date: 07/26/25 Did you have a dental visit in the last 12 months?: Yes Did you have a dental problem in the last 6 months where you did not have access to dental care?: No HPI HPI Comments History of Present Illness Details 89-year-old female with history of hypertension, hypothyroidism, mild intermittent asthma, paroxysmal atrial fibrillation, insomnia, and osteoarthritis presents to the office today for routine follow-up. Here with her daughter, Anamika. Hypertension-on hydrochlorothiazide 25 mg, lisinopril 20 mg. Blood pressure on recheck 122/70 Asthma-no recent exacerbation. Albuterol p.r.n. Struggling with breo Paroxysmal atrial fibrillation-2.5 mg Eliquis b.i.d.. Verapamil for rate control. No longer following with Cardiology Osteoarthritis- tramadol p.r.n. somewhat helpful. Occ needs to double dose. Also using diclofenac gel. Now knees, shoulder. Very stiff in the morning. Does not feel like the tramadol is helping enough. No falls Urge incontinence- wear pads. Not drinking close to bedtime. Concerns: None ROS: See HPI EXAM: Constitutional - Awake and Alert, No apparent distress Eyes - PERRL Cardiovascular - S1S2, RRR, No edema Respiratory - Normal lung expansion, Normal respiratory effort, No respiratory distress, CTA bilaterally Extremities - no calf tenderness bilaterally, no swelling Skin - Warm/Dry [facility] Medical History (Updated 07/26/25 @ 16:04 by SENIA Ley) Osteoarthritis of right hip Osteoarthritis of right glenohumeral joint Osteoarthritis of knees, bilateral Osteoarthritis of left hip History of healed fragility fracture Blood clot in eye Asthma Hypothyroid HTN (hypertension) Surgical History History of bunionectomy of right great toe History of left hip replacement History of bilateral knee replacement History of surgery Family History Father Aortic aneurysm Mother No problems noted. Social History (Updated 12/16/24 @ 16:20 by FUAD Mcconnell) Household Members: None Housing: Apartment Alcohol intake: current Alcohol intake frequency: 0-2 drinks per day Alcohol type: wine Patient Tobacco Use Status: Former Tobacco user e-Cigarette/Vaping Use: Former Use service: No Current occupational status: retired Cognitive needs: Yes (walker) Hearing needs: No Vision needs: Yes (reading glasses) Questionnaire Thrive Questionnaire Date Thrive assessed: 12/16/24 AUDIT C Alcohol Use Questionnaire (AUDIT-C) 2. How many drinks containing alcohol do you have on a typical day when you are drinking?: 3 or 4 3. How often do you have six or more drinks on one occasion?: Never Total Score: 1 MONY-7 AMB Questionnaire MONY-7 Date MONY - 7 assessed: 12/16/24 Source: Developed by Drs. Denzel Jarquin, Lena Dawkins, Segundo Boyd and colleagues, with an educational laura from [employer]. Physical exam (Primary Care) Vital Signs: Last Vital Signs Temp 97.4 F 07/26/25 15:03 Pulse 96 07/26/25 15:03 BP 122/70 07/26/25 15:03 Pulse Ox 98 07/26/25 15:03 Oxygen Delivery Method Room Air 07/26/25 15:03 BMI result Body Mass Index 24.7 Tobacco/Smoking Status: Tobacco use Status Tobacco use date assessed 07/26/25 07/26/25 15:11 Patient Tobacco Use Status Former Tobacco user 07/26/25 15:11 e-Cigarette/Vaping Use Former Use 07/26/25 15:11 Thrive Assessment: Date of Thrive Assessment Date Thrive assessed 12/16/24 07/26/25 15:02 Coding Level of Care Code Est Pt Level 4 (14752) Add On Problem Visit Only Diagnoses Osteoarthritis involving multiple joints on both sides of body M15.9 Hypothyroid E03.9 HTN (hypertension) I10 Atrial fibrillation I48.91 Asthma J45.909 Assessment & Plan Assessment & Plan (1) Osteoarthritis involving multiple joints on both sides of body: Code(s): M15.9 - Polyosteoarthritis, unspecified Category: Medical Plan: Continue gabapentin 300 mg nightly. Add gabapentin 100 mg at 07:00 and 15:00. Continue tramadol as prescribed as well as diclofenac gel (2) Hypothyroid: Code(s): E03.9 - Hypothyroidism, unspecified Category: Medical Plan: Continue levothyroxine. TSH level ordered (3) HTN (hypertension): Code(s): I10 - Essential (primary) hypertension Category: Medical Plan: Controlled. Continue current therapies (4) Atrial fibrillation: Code(s): I48.91 - Unspecified atrial fibrillation Category: Medical Plan: Rate controlled. Continue verapamil and Eliquis for anticoagulation (5) Asthma: Code(s): J45.909 - Unspecified asthma, uncomplicated Category: Medical Plan: Add Breo. Continue albuterol as needed Plan Follow-up in the office in 6 months, labs to be completed today. Orders: Orders Liver Panel Today E03.9 - Hypothyroidism, unspecified, I10 - Essential (primary) hypertension, I48.0 - Paroxysmal atrial fibrillation TSH reflex Free T4 Today E03.9 - Hypothyroidism, unspecified, I10 - Essential (primary) hypertension, I48.0 - Paroxysmal atrial fibrillation Basic Metabolic Panel Today E03.9 - Hypothyroidism, unspecified, I10 - Essential (primary) hypertension, I48.0 - Paroxysmal atrial fibrillation Medications: New fluticasone furoate-vilanterol 100-25 mcg/dose (Breo Ellipta) 1 inh inhalation DAILY 60 ea 5RF gabapentin Take 1 cap at 0700 and 1 cap at 1500. 100 mg PO BID 180 caps 0RF Refilled diclofenac sodium 3% 0.1 grams topical TID 100 grams 3RF
[2025-07-26 15:03] VITALS: BP 122/70; PULSE 96; TEMP 36.3; O2SAT 98; BMI 24.7
--- OUTSIDE RECORDS SUMMARY | 2025-07-26 21:18 | XMS_ITS | Clinical Summary ---
Author Organization [facility] Address [address] [place] [address] Care Team Providers Care Baseball Player Name Role Phone System, Provider Not In [...] tablet 04/10/20 21 Active cholecalciferol (VITAMIN D3) 94119 units capsuleIndications :Encounter for aftercare for healing [...] es 65 and older) 2001 RSV Vaccine 50 years and old er and Patients (1 - 1-dose 75+ series) 2011 Influenza Vaccine 03/12/2025 COVID-19 Vaccine ( - 2024-2 6 season) 2025 Hepatitis B Vaccines Aged Out No long er eligible based on patient's age to complete this topic Medical Devices Implanted Type Area Engine Test Cell Technician Device Identifier Shelf Expiration Date Model / Serial / Lot 124.417 Plate Cndrl Periart Left 336m 16 Hole 4 Clmn Thrd Va Curve - [id number] Implanted:Qty: 1 on 04/07/2021 by Lior Henderson MD at [facility] Plate [employer] - A KATHERIEN AND 124.417 / / 202.830 Screw Bone Jeff Flthrd 30mm Ss 2.7mm Slftp Sm Hex Socket - [id number] Implanted:Qty: 1 on 04/07/2021 by Lior Henderson MD at [facility] Screw Left: Femur DE[employer]ES - A KATHERINE AND 202.830 / / 214.836 Screw Bone Jeff 3.5mm 36mm Ss 4.5mm 8mm Slftp Lg Hex Nonst - [id number] Implanted:Qty: 1 on 04/07/2021 by Lior Henderson MD at [facility] Screw DEPUY [employer]ES - A KATHERINE AND 214.836 / / 214.840 Screw Bone Jeff 3.5mm 40mm Ss 4.5mm 8mm Slftp Lg Hex Socket - [id number] Implanted:Qty: 1 on 04/07/2021 by Lior Henderson MD at [facility] Screw [employer]ES - A KATHERINE AND 214.840 / / 204.830 Screw Bone Jeff 2.5mm Flthrd 30mm Ss 3.5mm Slftp Lp Sm Hex - [id number] Implanted:Qty: 1 on 04/07/2021 by Lior Henderson MD at [facility] Screw Left: Femur [employer] - A KATHERINE AND 204.830 / / 204.832 Screw Bone Jeff 2.5mm Flthrd 32mm Ss 3.5mm Slftp Lp Sm Hex - [id number] Implanted:Qty: 1 on 04/07/2021 by Lior Henderson MD at [facility] Screw Left: Femur [employer] - A KATHERINE AND 204.832 / / 02.231.670 Screw Bone 3.5mm Flut 70mm Ss 5mm Veronika Self Drill Lock Va - [id number] Implanted:Qty: 2 on 04/07/2021 by Lior Henderson MD at [facility] Screw DEPUY [employer]ES - A KATHERINE AND 02.231.670 / / 02.231.620 Screw Bone 20mm 5mm Va Veronika Lock - [id number] Implanted:Qty: 1 on 04/07/2021 by Lior Henderson MD at [facility] Screw DEPUY [employer]ES - A KATHERINE AND 02.231.620 / / 02.231.625 Screw Bone 25mm 5mm Va Veronika Lock - [id number] Implanted:Qty: 1 on 04/07/2021 by Lior Henderson MD at [facility] Screw DEPUY [employer]ES - A KATHERINE AND .231.625 / / 231.655 Screw Bone 3.5mm Flut 55mm Ss 5mm Veronika Self Drill Lock Va - [id number] Implanted:Qty: 1 on 04/07/2021 by Lior Henderson MD at [facility] Screw DEPU[employer] - A KATHERINE AND 231.655 / / 231.665 Screw Bone 3.5mm Flut 65mm Ss 5mm Veronika Self Drill Lock Va - [id number] Implanted:Qty: 1 on 04/07/2021 by Lior Henderson MD at [facility] Screw DEPUY [employer] - A KATHERINE AND .665 / / .834 Screw Bone Jeff 3.5mm 34mm Ss 4.5mm 8mm Slftp Lg Hex Socket - [id number] Implanted:Qty: 2 on 04/07/2021 by Lior Henderson MD at [facility] Screw DEPUY [employer]ES - A KATHERINE AND 214.834 / / 298.801.01s Cable Orthopedic Ss 1.7mm 750mm Crmp Nonst Lcp - [id number] Implanted:Qty: 1 on 04/07/2021 by Lior Henderson MD at [facility] Wire Left: Femur DE[employer]ES - A KATHERINE AND 08/11/2025 298.801.01 S / / [id number] Insurance MEDICARE PART A & B [facility] MEDICARE PART A [employer] B [facility] Advance Directives * Full Code (Latest Code Status on File) Date Activated Date Inactivated Comments 04/06/2021 2:55 PM Care Teams Baseball Player Relationship Specialty Start Date End Date System, Provider Not In PCP - General 05/12/23
== END 2025-07-26 15:38 | disposition home or self-care (01) ==
LOC: HO.HMCHD 14:50
PROVIDERS: PCP Physician Assistant; Visit Provider Physician Assistant
DX: M15.9 Polyosteoarthritis, unspecified (principal); E03.9 Hypothyroidism, unspecified; I10 Essential (primary) hypertension; I48.91 Unspecified atrial fibrillation; J45.909 Unspecified asthma, uncomplicated

== ENCOUNTER → 2025-07-26 14:50 | Outpatient (BNVA) | payer MEDICARE, SELFPAY | PROVIDERS: PCP Physician Assistant; Visit Provider Physician Assistant | DX: M15.9 Polyosteoarthritis, unspecified (principal); I10 Essential (primary) hypertension; J45.909 Unspecified asthma, uncomplicated; E03.9 Hypothyroidism, unspecified; I48.0 Paroxysmal atrial fibrillation; M15.0 Primary generalized (osteo)arthritis; N39.41 Urge incontinence | CPT/HCPCS: 99212 ==